=== PATIENT | female | born 1945 | race Caucasian/White ===

== ENCOUNTER 2016-09-13 20:35 | Inpatient (IN) ==
[2016-09-13] MEDS ORDERED: methylPREDNISolone SOD SUC 125 MG/2 ML VIAL IV STA (21:10)
[2016-09-13] MEDS ORDERED: SODIUM CHLORIDE 0.9% 1,000 ML IV STA (21:10)
[2016-09-13] MEDS ORDERED: ALBUTEROL/IPRATROPIUM 3 ML NEB RESP TX STA (21:10)
[2016-09-13] MEDS ORDERED: methylPREDNISolone SOD SUC 125 MG/2 ML VIAL ONE (21:39)
[2016-09-13 22:07] LABS: Basophils # 0.1 10*3/uL (0.0-0.2); Basophils % 0.5 % (0.0-0.8); Eosinophils # 1.6 10*3/uL (0.0-0.87); Eosinophils % 7.4 % (0.00-10.9); Hematocrit 39.4 VOL% (35.7-47.0); Immature Granulocytes % 0.6 %; Immature Granulocytes Absolute 0.13 #; Lymphocytes # 5.3 10*3/uL (1.4-4.0); Lymphocytes % 24.9 % (21.3-54.2); Mean Corpuscular HGB Conc 30.5 GM/DL (32-36); Mean Corpuscular Hemoglobin 26 PG (27-34); Mean Corpuscular Volume 85.3 FL (87-102); Mean Platelet Volume 9.2 FL (9.6-12.0); Monocytes # 1.8 10*3/uL (0.11-0.8); Monocytes % 8.3 % (1.7-12.7); Neutrophils # 12.3 10*3/uL (1.4-7.4); Neutrophils % 58.3 % (38.7-73.9); Platelet Count 472 T/CUMM (130-400); Red Blood Count 4.62 MC/CUMM (3.8-5.5); Red Cell Distribution Width 16.3 % (9.3-17.3); White Blood Count 21.1 T/CUMM (4-12)
[2016-09-13 22:30] LABS: Alanine Aminotransferase 18 U/L (13-56); Albumin 3.2 G/DL (3.4-5.0); Alkaline Phosphatase 77 U/L (45-117); Aspartate Amino Transferase 18 U/L (0-37); Bilirubin,Total < 0.39 MG/DL (0.2-1.0); Blood Urea Nitrogen 17 MG/DL (7-18); Calcium 8.8 MG/DL (8.5-10.1); Glucose 92 MG/DL (74-106); Osmolality,Calculated 280.4 MOS/KG (273-304); Potassium 4.3 MMOL/L (3.5-5.1); Sodium 140 MMOL/L (136-145); Total Protein 5.9 G/DL (6.4-8.3); Troponin I Only < 0.015 NG/ML (0.00-0.045)
[2016-09-13] MEDS ORDERED: ALBUTEROL 2.5 MG/3 ML NEB RESP TX SCH ×2 (22:30→23:45)
[2016-09-14 00:46] LABS: ABG Base Excess 3.4 MMOL/L (-2.5-2.5); ABG HCO3 27.4 MMOL/L (20-26); ABG Oxygen Saturation 95.5 % (95-100); ABG PH 7.266 (7.35-7.45); ABG TCO2 29.8 MMOL/L (23-27)
[2016-09-14] MEDS ORDERED: LEVOFLOXACIN INJ 750 MG in PREMIX 1 EACH IV STA (00:46)
[2016-09-14 00:51] LABS: ABG PCO2 72.4 MM HG (35-48)
[2016-09-14] MEDS ORDERED: LEVOFLOXACIN INJ 0 ML IV ONE (01:03)
[2016-09-14] MEDS ORDERED: ALBUTEROL 2.5 MG/3 ML NEB RESP TX PRN ×2 (01:22)
[2016-09-14] MEDS ORDERED: ONDANSETRON 4 MG/2 ML VIAL IV PRN (01:22)
[2016-09-14] MEDS ORDERED: ACETAMINOPHEN 325 MG TABLET PO PRN (01:22)
--- NOTE | 2016-09-14 01:35 | Emergency Department Note ---
I, Jenny Guerrero, am scribing for, and in the presence of, Mary Diaz MD 20:57. IJoe Leanne, MD, personally performed the services described in this documentation, ascribed by Jenny Guerrero in my presence, and it is both accurate and complete . Arrival - Arrival Chief Complaint: Shortness of Breath Stated Complaint: C/O SOB WITH ONSET AT [facility] 1945 TONIGHT Mode of Arrival: Stretcher Limitations: No Limitations Source: Patient - History of Present Illness HPI Narrative: Pt is a 71 y/o female that was brought to the ED via EMS with c/o SOB that came on suddenly around 5 tonight. Pt has associated sxs of LAZO but denies any other sxs. Pt has a PMHx of asthma and COPD and states "if I go outside for 10 minutes it does this." Pt reports that she is not from [place] and "my lungs don't like [place]." Pt denies being a current smoker or being around anyone who smokes. She states she does take breathing treatments at home daily for asthma and COPD. No other complaints/pain in ED. Onset (ago): hour(s) Consistency: constant Severity: moderate Severity scale (1-10): 4 Quality: other Allergies/Adverse Reactions: Allergies Allergy/AdvReac Type Severity Reaction Status Date / Time Latex, Natural Rubber Allergy Severe ANAPHYLAXIS Verified 08/16/16 08:57 Penicillins Allergy Severe ANAPHYLAXIS Verified 08/16/16 08:57 celecoxib [From Celebrex] Allergy Unknown ANAPHYLAXIS Verified 08/16/16 08:57 codeine Allergy Unknown ANAPHYLAXIS Verified 08/16/16 08:57 Shellfish Allergy Unknown ANAPHYLAXIS Verified 08/16/16 08:57 strawberry AdvReac Severe Vomiting Verified 08/16/16 08:57 lisinopril AdvReac ANAPHYLAXIS Verified 08/16/16 08:57 BABY POWDER Allergy RASH Uncoded 08/16/16 08:57 Home Medications: Home Medications Medication Instructions Recorded Confirmed Type dilTIAZem HCl [Taztia XT] 360 mg PO DAILY 01/06/16 08/16/16 History Albuterol/Ipratropium Neb [Duoneb] 3 ml RESP TX QID PRN 03/10/16 08/16/16 History Gabapentin 100 mg PO BID 03/10/16 08/16/16 History Sertraline [Zoloft] 25 mg PO BEDTIME 03/10/16 08/16/16 History Theophylline ER Tab (24 Hr) 400 mg PO DAILY 03/10/16 08/16/16 History dilTIAZem HCl [Cartia XT] 180 mg PO BID 03/10/16 08/16/16 History acetaZOLAMIDE TAB [Diamox Tab] 250 mg PO BID #60 tablet 03/13/16 08/16/16 Rx Diphenoxylate/Atrop 2.5-0.025 2.5 mg PO Q6H PRN 05/19/16 08/16/16 History [Lomotil Tab] ALPRAZolam [Xanax] 0.25 mg PO BID PRN #30 tablet 05/23/16 08/16/16 Rx Albuterol/Ipratropium Neb [Duoneb] 3 ml RESP TX RT Q6H PRN #0 05/23/16 08/16/16 Rx nebulization solution guaiFENesin/DM ER 600-30 [Mucinex 1 tablet PO BID PRN #30 tablet 05/23/16 Rx Dm 600-30 MG] Montelukast Tab [Singulair Tab] 10 mg PO DAILY 08/16/16 08/16/16 History Review of System - Review of System 12 point system: reviewed and no additional remarkable complaints except as stated - Review of System Constitutional: Absent: chills, fever Respiratory: Present: other (SOB). Absent: cough Cardiovascular: Absent: chest pain Gastrointestinal: Absent: abdominal pain, nausea, vomiting Musculoskeletal: Absent: arm pain, back pain, leg pain, neck pain Skin: Absent: rash Neurological: Present: headache Psychiatric: Absent: anxiety Medical,Surgical,& Family Hx - Medical History Cardio: History of: Cardiac Dysrhythmia (a-fib), CHF, Hypertension Psychological: History of: Anxiety Disorders, Bipolar Disorder, Depression, Psychiatric Problems (depressed mood aeb sadness, hopelessness, and inability to cope with daily) No history of: Behavior Problems, Previous Suicide Attempt, Psychiatric/ Substance Abuse Tx, Schizophrenia, Violent Behavior Neurology: History of: Dementia, Migraine No history of: Brain Aneurysm, Cerebral Hemorrhage, Cerebrovascular Accident , Cerebral Palsy, Seizures, TIA, Vertigo HEENT: History of: Dental Problems (MISSING TEETH) Endocrine: No history of: Diabetes Mellitus (IDDM), Diabetes Mellitus (NIDDM), Thyroid Disorder Respiratory: History of: Asthma, COPD, Pneumonia, Respiratory Problems (BORN PREMATURE;HAD LUNG PROBLEMS.) Renal: No history of: Dialysis, Renal Failure Genitourinary: History of: Bladder Problem (HX PROLAPSE BLADDER), Recurring Urinary Tract Infections, Problems (STRESS INCONTINENCE) No history of: Kidney Stones Gastrointestinal: History of: GERD, GI Problems Musculoskeletal: History of: Musculoskeletal Problems (MUSCLE WEAKNESS.) No history of: Amputation Hematology: History of: Anemia, Blood Transfusion Reaction (NOT SURE) Other: History of: Miscellaneous Medical Problems (DJD) - Surgical History Cardiac Surgeries: Patient Denies: Cardiac Catheterization Thoracic Surgeries: Patient denies;: Organ Transplant, Lobectomy Neurologic Surgeries: Patient denies: Brain Aneurysm, Cerebral Hemorrhage, Neurologic Surgery HEENT Surgeries: Patient denies: Eye Surgery, Thyroid Surgery, Tonsilectomy & Adenoidectomy Abdominal Surgeries: Surgical HX of: Abdominal Surgery, Cholecystectomy Reproductive Surgeries: Surgical HX of;: Gynecologic Surgery, Hysterectomy Patient denies;: Dilation and Curettage, Genitourinary Surgery - Family History Family History: Reports;: Family Diabetes (BROTHER), Family Hypertension ( BROTHER RECENT 1-2 MONTHS AGO.), Family Psychiatric Problems (BROTHER) Denies;: Family Anesthesia Reaction, Family Cancer, Family Heart Disease, Family Stroke - Social History Smoking Status: Former smoker Frequency of Alcohol Use: None Type of Drug Use: None Exam Vital Signs: Vital Signs Temperature 98.2 F 09/13/16 20:37 Pulse Rate 101 H 09/14/16 00:29 Respiratory Rate 32 H 09/14/16 00:29 Blood Pressure 153/77 09/13/16 20:37 O2 Sat by Pulse Oximetry 100 09/14/16 00:29 - General General appearance: alert, in no apparent distress - Head Head exam: Present: atraumatic, normocephalic - Eye Eye exam: Present: PERRL, EOMI - ENT ENT exam: Present: mucous membranes moist. Absent: mucous membranes dry - Neck Neck exam: Present: full ROM. Absent: tenderness - Chest Chest inspection: Present: symmetric chest wall rise. Absent: tenderness - Respiratory Respiratory exam: Present: wheezes (diffuse wheezing) - Cardiovascular Cardiovascular exam: Present: normal rhythm, tachycardia, normal heart sounds - Abdominal Exam Abdominal exam: Present: soft. Absent: tenderness - Extremities Exam Extremities exam: Present: full ROM. Absent: tenderness - Back Exam Back exam: Present: full ROM. Absent: tenderness - Neurological Exam Neurological exam: Present: alert, oriented X3, CN II-XII intact. Absent: motor sensory deficit - Psychiatric Psychiatric exam: Present: normal affect, normal mood - Skin Skin exam: Present: warm, dry Course Course Narrative: pt not improved after continuous nebs. placed on bipap. co2 high. ph 7.26. steriods and levaquin given. Admit to hospitalist. Results - Labs CBC & BMP: 09/13/16 21:50 09/13/16 21:50 Lab Results: I have reviewed the patients labs Labs: Laboratory Tests 09/13/16 21:50 WBC 21.1 H MCV 85.3 L MCH 26 L MCHC 30.5 L Plt Count 472 H MPV 9.2 L Neut # (Auto) 12.3 H Lymph # (Auto) 5.3 H Camas # (Auto) 1.8 H Eos # (Auto) 1.6 H Laboratory Tests 09/13/16 21:50 Carbon Dioxide 33 H Total Protein 5.9 L Albumin 3.2 L - EKG EKG results: interpreted by ANGE, sinus rhythm, normal ST/T - Diagnostic Findings Procedure: Chest x-ray: pending (no change from prior) Disposition Clinical Impression: Acute exacerbation of chronic obstructive airways disease, COPD (chronic obstructive pulmonary disease), Asthma Case discussed with: patient Condition: Guarded Additional Instructions: admit to hospitalist
--- NOTE | 2016-09-14 01:45 | Hospitalist History & Physical ---
Assessment and Plan (1) Acute and chronic respiratory failure ([id number]) Status: Acute Current Visit: No Qualifiers: Respiratory failure complication: hypercapnia Qualified Code(s): J96.22 - Acute and chronic respiratory failure with hypercapnia (2) COPD (chronic obstructive pulmonary disease) Status: Chronic Current Visit: No Qualifiers: COPD type: COPD with acute exacerbation Qualified Code(s): J44.1 - Chronic obstructive pulmonary disease with (acute) exacerbation (3) Essential hypertension Status: Chronic Current Visit: No (4) Leukocytosis Status: Acute Assessment and plan: We will admit patient our service. Will continue with the BiPAP. Patient will be transferred to ICU. Will repeat labs in the morning. Will consult pulmonary for assistance. Patient will continue with IV antibiotics and schedule breathing treatments and steroids. Once home meds are confirmed we will continue those as appropriate Current Visit: No History of Present Illness Chief complaint: Shortness of breath History of present illness: Ms. Lanza is a 71 year old female with past medical history of asthma and COPD comes in with shortness of breath that started around 8 PM tonight. Patient had frequent admissions to our hospital. She was last admitted in August. She says that she was getting short of breath. She denies any fever or productive cough. She is brought up to our hospital for further evaluation. Patient was found to have elevated PCO2 and was put on BiPAP. Patient is currently awake and alert and appropriate on BiPAP. Reports feeling better. I was consulted to admit her through the emergency room to intensive care. Home Medications Medication Instructions Recorded Confirmed Type dilTIAZem HCl [Taztia XT] 360 mg PO DAILY 01/06/16 08/16/16 History Albuterol/Ipratropium Neb [Duoneb] 3 ml RESP TX QID PRN 03/10/16 08/16/16 History Gabapentin 100 mg PO BID 03/10/16 08/16/16 History Sertraline [Zoloft] 25 mg PO BEDTIME 03/10/16 08/16/16 History Theophylline ER Tab (24 Hr) 400 mg PO DAILY 03/10/16 08/16/16 History dilTIAZem HCl [Cartia XT] 180 mg PO BID 03/10/16 08/16/16 History acetaZOLAMIDE TAB [Diamox Tab] 250 mg PO BID #60 tablet 03/13/16 08/16/16 Rx Diphenoxylate/Atrop 2.5-0.025 2.5 mg PO Q6H PRN 05/19/16 08/16/16 History [Lomotil Tab] ALPRAZolam [Xanax] 0.25 mg PO BID PRN #30 tablet 05/23/16 08/16/16 Rx Albuterol/Ipratropium Neb [Duoneb] 3 ml RESP TX RT Q6H PRN #0 05/23/16 08/16/16 Rx nebulization solution guaiFENesin/DM ER 600-30 [Mucinex 1 tablet PO BID PRN #30 tablet 05/23/16 Rx Dm 600-30 MG] Montelukast Tab [Singulair Tab] 10 mg PO DAILY 08/16/16 08/16/16 History Allergies Allergy/AdvReac Type Severity Reaction Status Date / Time Latex, Natural Rubber Allergy Severe ANAPHYLAXIS Verified 08/16/16 08:57 Penicillins Allergy Severe ANAPHYLAXIS Verified 08/16/16 08:57 celecoxib [From Celebrex] Allergy Unknown ANAPHYLAXIS Verified 08/16/16 08:57 codeine Allergy Unknown ANAPHYLAXIS Verified 08/16/16 08:57 Shellfish Allergy Unknown ANAPHYLAXIS Verified 08/16/16 08:57 strawberry AdvReac Severe Vomiting Verified 08/16/16 08:57 lisinopril AdvReac ANAPHYLAXIS Verified 08/16/16 08:57 BABY POWDER Allergy RASH Uncoded 08/16/16 08:57 Medical,Surgical,& Family Hx - Medical History Cardio: History of: Cardiac Dysrhythmia (a-fib), CHF, Hypertension Psychological: History of: Anxiety Disorders, Bipolar Disorder, Depression, Psychiatric Problems (depressed mood aeb sadness, hopelessness, and inability to cope with daily) No history of: Behavior Problems, Previous Suicide Attempt, Psychiatric/ Substance Abuse Tx, Schizophrenia, Violent Behavior Neurology: History of: Dementia, Migraine No history of: Brain Aneurysm, Cerebral Hemorrhage, Cerebrovascular Accident , Cerebral Palsy, Seizures, TIA, Vertigo HEENT: History of: Dental Problems (MISSING TEETH) Endocrine: No history of: Diabetes Mellitus (IDDM), Diabetes Mellitus (NIDDM), Thyroid Disorder Respiratory: History of: Asthma, COPD, Pneumonia, Respiratory Problems (BORN PREMATURE;HAD LUNG PROBLEMS.) Renal: No history of: Dialysis, Renal Failure Genitourinary: History of: Bladder Problem (HX PROLAPSE BLADDER), Recurring Urinary Tract Infections, Problems (STRESS INCONTINENCE) No history of: Kidney Stones Gastrointestinal: History of: GERD, GI Problems Musculoskeletal: History of: Musculoskeletal Problems (MUSCLE WEAKNESS.) No history of: Amputation Hematology: History of: Anemia, Blood Transfusion Reaction (NOT SURE) Other: History of: Miscellaneous Medical Problems (DJD) - Surgical History Cardiac Surgeries: Patient Denies: Cardiac Catheterization Thoracic Surgeries: Patient denies;: Organ Transplant, Lobectomy Neurologic Surgeries: Patient denies: Brain Aneurysm, Cerebral Hemorrhage, Neurologic Surgery HEENT Surgeries: Patient denies: Eye Surgery, Thyroid Surgery, Tonsilectomy & Adenoidectomy Abdominal Surgeries: Surgical HX of: Abdominal Surgery, Cholecystectomy Reproductive Surgeries: Surgical HX of;: Gynecologic Surgery, Hysterectomy Patient denies;: Dilation and Curettage, Genitourinary Surgery - Family History Family History: Reports;: Family Diabetes (BROTHER), Family Hypertension ( BROTHER RECENT 1-2 MONTHS AGO.), Family Psychiatric Problems (BROTHER) Denies;: Family Anesthesia Reaction, Family Cancer, Family Heart Disease, Family Stroke - Social History Smoking Status: Former smoker Frequency of Alcohol Use: None Type of Drug Use: None 12 point system: reviewed and no additional remarkable complaints except as stated Exam - Constitutional Vitals: Period Temp Pulse Resp BP Sys/Montes Pulse Ox Last 24 Hr 98.1 F-98.2 F 98-108 24-32 153-153/77-77 94-100 - General General appearance: alert, in no apparent distress - Head Head exam: Present: atraumatic, normocephalic - Eye Eye exam: Present: PERRL, EOMI - ENT ENT exam: Present: mucous membranes moist. Absent: mucous membranes dry - Neck Neck exam: Present: full ROM. Absent: tenderness - Chest Chest inspection: Present: symmetric chest wall rise. Absent: tenderness - Respiratory Respiratory exam: Present: wheezes (diffuse wheezing) - Cardiovascular Cardiovascular exam: Present: normal rhythm, tachycardia, normal heart sounds - Abdominal Exam Abdominal exam: Present: soft. Absent: tenderness - Extremities Exam Extremities exam: Present: full ROM. Absent: tenderness - Back Exam Back exam: Present: full ROM. Absent: tenderness - Neurological Exam Neurological exam: Present: alert, oriented X3, CN II-XII intact. Absent: motor sensory deficit - Psychiatric Psychiatric exam: Present: normal affect, normal mood - Skin Skin exam: Present: warm, dry Results - Labs CBC & BMP: 09/13/16 21:50 09/13/16 21:50
[2016-09-14] MEDS: ENOXAPARIN 40 MG/0.4 ML SYRINGE SUBCUT SCH (02:35)
[2016-09-14] MEDS: PANTOPRAZOLE 40 MG VIAL IV SCH (02:36)
[2016-09-14] MEDS: methylPREDNISolone SOD SUC 40 MG/1 ML VIAL IV SCH ×4 (02:36→21:45)
[2016-09-14 03:50] LABS: ABG Base Excess 2.7 MMOL/L (-2.5-2.5); ABG HCO3 26.7 MMOL/L (20-26); ABG PH 7.262 (7.35-7.45); ABG PO2 84.3 MM HG (80-95); ABG TCO2 29.1 MMOL/L (23-27); Allen Test Positive; Pt O2 Delivery Device BIPAP
[2016-09-14] MEDS: ALBUTEROL/IPRATROPIUM 3 ML NEB RESP TX SCH ×3 (07:17→19:22)
--- NOTE | 2016-09-14 07:23 | XRay Report ---
XR chest 1V portable Indication: SOB Comparison: Chest x-ray dated July 17, 2016 Technique: Single frontal view of the chest Findings: Cardiomediastinal silhouette is stable in configuration. Heart appears borderline prominent. Interval increased prominence of interstitial lung markings of the bilateral lower lungs suspicious for interstitial pulmonary edema or interstitial pneumonia. Osseous and surrounding soft tissue structures appear grossly unchanged. IMPRESSION: As above. PROCEDURE INTERPRETED AT [facility] DEPARTMENT OF RADIOLOGY Final Report Signed by: Dr Roberto Suarez
[2016-09-14 08:11] LABS: Allen Test Positive
[2016-09-14 08:12] LABS: ABG HCO3 30.4 MMOL/L (20-26); ABG Oxygen Saturation 91.2 % (95-100); ABG PCO2 53.9 MM HG (35-48); ABG PH 7.369 (7.35-7.45); ABG PO2 57.4 MM HG (80-95)
[2016-09-14 08:22] LABS: Basophils % 0.1 % (0.0-0.8); Hemoglobin 11.8 GM/DL (12.0-16.0); Immature Granulocytes % 0.9 %; Immature Granulocytes Absolute 0.14 #; Lymphocytes # 0.9 10*3/uL (1.4-4.0); Lymphocytes % 5.6 % (21.3-54.2); Mean Corpuscular HGB Conc 29.2 GM/DL (32-36); Mean Corpuscular Hemoglobin 26 PG (27-34); Mean Platelet Volume 10.2 FL (9.6-12.0); Monocytes # 0.1 10*3/uL (0.11-0.8); Monocytes % 0.4 % (1.7-12.7); Neutrophils # 15.3 10*3/uL (1.4-7.4); Platelet Count 450 T/CUMM (130-400); Red Blood Count 4.54 MC/CUMM (3.8-5.5); Red Cell Distribution Width 16.2 % (9.3-17.3); White Blood Count 16.5 T/CUMM (4-12)
[2016-09-14 08:23] LABS: Hematocrit 40.4 VOL% (35.7-47.0)
--- NOTE | 2016-09-14 08:25 | Hospitalist Progress Note ---
Assessment and Plan (1) Acute and chronic respiratory failure ([id number]) Status: Acute Current Visit: No Qualifiers: Respiratory failure complication: hypercapnia Qualified Code(s): J96.22 - Acute and chronic respiratory failure with hypercapnia (2) COPD (chronic obstructive pulmonary disease) Status: Chronic Assessment and plan: cont duonebs, steroids and levaquin Current Visit: No Qualifiers: COPD type: COPD with acute exacerbation Qualified Code(s): J44.1 - Chronic obstructive pulmonary disease with (acute) exacerbation (3) Bipolar 1 disorder, manic, mild Status: Chronic Assessment and plan: need to verify home meds Current Visit: No (4) Essential hypertension Status: Chronic Assessment and plan: controlled Current Visit: No Hospitalist: Subjective Interval history: Patient is refusing to wear BiPAP. Told nursing to keep her oxygen level between 85 and 88%. Her CO2 will come down if you keep her oxygen low. Dr. Baxter consulted. Exam - Constitutional Vitals: Period Temp Pulse Resp BP Sys/Montes Pulse Ox Last 24 Hr 97.2 F-98.1 F 87-106 17-27 107-134/48-75 94-98 Exam: Heart Rate-[RRR] Lungs-[rhonchi, wheezing] GI-[+bs soft, NT] Ext-[no edema] Neuro [Motor 5/5], [alert and oriented times 2] psych [normal mood and affect] General [no acute distress] Results - Labs CBC & BMP: 09/13/16 21:50 09/13/16 21:50 Lab Results: I have reviewed the past 24 hour labs - Diagnostic Findings Procedure: Chest x-ray: image reviewed by me (copd, ?interstitial edema/ infiltrate on left )
[2016-09-14 08:27] LABS: Albumin 3.1 G/DL (3.4-5.0); Bilirubin,Total 0.5 MG/DL (0.2-1.0); Calcium 8.7 MG/DL (8.5-10.1); Potassium 5.4 MMOL/L (3.5-5.1); Total Protein 6.1 G/DL (6.4-8.3)
--- NOTE | 2016-09-14 08:41 | XRay Report ---
XR chest 1V portable Indication: SOB Comparison: Chest x-ray dated September 13, 2016 Technique: Single frontal view of the chest Findings: Cardiac mediastinal silhouette is stable in configuration. Chronic change of the lungs present. There remains interstitial prominence within the bilateral lower lungs. No new focal consolidation, pleural effusion, or pneumothorax. Osseous and surrounding soft tissue structures appear grossly unchanged. IMPRESSION: No significant interval change. PROCEDURE INTERPRETED AT [facility] DEPARTMENT OF RADIOLOGY Final Report Signed by: Dr Roberto Suarez
[2016-09-14 08:48] LABS: Band Neutrophils 2 % (0-10); Lymphocytes 8 % (20-55); Segmented Neutrophils 89 % (50-85); Total Cells Counted 100
[2016-09-14 08:49] LABS: Hypochromasia 1+; Microcytosis 1+
--- NOTE | 2016-09-14 08:51 | EKG Report ---
Stationary ECG Study [facility] Test Date: 09/13/2016 10:17:50 PM Pat Name: ANAND HERNANDEZ Department: Room: 121 Gender: F [employer] Guide [employer]er: : 1945 Requested by: Mary Diaz Order Number: [id number] Reading MD: GRECIA MOBLEY Intervals [place] Rate: 98 P: 74 IA: 201 QRS: 87 QRSD: 86 T: 47 QT: 331 QTc: 386 Interpretive Statements SINUS RHYTHM WITH OCCASIONAL SUPRAVENTRICULAR PREMATURE COMPLEXES BASELINE ARTIFACT Electronically Signed On 09-15-16 21:50:04 CDT by GRECIA MOBLEY [email or web address]
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
[2016-09-14] MEDS: DESITIN 4OZ/NYSTATIN 15 GRAM MIXTURE PASTE TOP SCH (21:49)
[2016-09-15] MEDS: ALBUTEROL/IPRATROPIUM 3 ML NEB RESP TX SCH ×4 (01:08→20:20)
[2016-09-15] MEDS ORDERED: LEVOFLOXACIN INJ 750 MG in PREMIX 1 EACH IV SCH (01:30)
[2016-09-15] MEDS: ENOXAPARIN 40 MG/0.4 ML SYRINGE SUBCUT SCH (01:44)
[2016-09-15] MEDS: PANTOPRAZOLE 40 MG VIAL IV SCH (02:03)
[2016-09-15] MEDS: methylPREDNISolone SOD SUC 40 MG/1 ML VIAL IV SCH ×2 (02:45→09:46)
--- NOTE | 2016-09-15 07:45 | XRay Report ---
XR chest 1V portable Indication: COPD, SOB Comparison: Chest x-ray dated September 14, 2016 Technique: Single frontal view of the chest Findings: Cardiomediastinal silhouette is stable in configuration. Chronic change of the lungs present with nonspecific mild interstitial prominence. No new focal consolidation, pleural effusion, or pneumothorax. Osseous and surrounding soft tissue structures appear grossly unchanged. IMPRESSION: No adverse interval change. PROCEDURE INTERPRETED AT [facility] DEPARTMENT OF RADIOLOGY Final Report Signed by: Dr Roberto Suarez
[2016-09-15] MEDS: DESITIN 4OZ/NYSTATIN 15 GRAM MIXTURE PASTE TOP SCH ×2 (09:46→21:46)
--- NOTE | 2016-09-15 10:55 | Pulmonology Progress Note ---
Pulmonary - PN: Subj Interval history: Adrian Mcgovern, ANP-BC, GNP-BC, acting as scribe for Dr. Arturo Baxter Ms. Lanza is a 71-year-old white female who we saw in initial pulmonary consultation on 09/14/2016. At that time, our impressions were: #1: Acute exacerbation of COPD/asthma #2: CO2 retention #3: Bipolar disorder #4: Anxiety and depression #5: Hypertension #6: History of atrial fibrillation #7: Gastroesophageal reflux disease #8: History of anemia #9: Prolapsed bladder #10: History of recurrent UTIs #11: Stress incontinence #12: See past history 09/15/2016. The patient has been moved out of cardiac care and up to telemetry. She was seen sitting up on the side of the bed. Her breathing is stable. She feels she is back to her baseline. Again, she relates her acute exacerbation to going outside and feeding a stray cat. She states "I'm going to have to stop doing that". On chest exam, there is slight generalized high-pitched end expiratory wheeze. We restarted the patient's home dose of theophylline. Medications have been reviewed. Theophylline 400 mg daily has been restarted. Labs have been reviewed. No new labs were drawn today. Exam (Progress Note) - Constitutional Vitals: Period Temp Pulse Resp BP Sys/Montes Pulse Ox Last 24 Hr 97.1 F-99.3 F 85-123 16-20 115-149/66-79 90-100 Exam: Chest... See above Heart no gallop Abdomen is nontender and nondistended; bowel sounds are positive 4 Extremities with nothing to suggest acute deep venous thrombophlebitis Psychiatric presently oriented 3 Neurologic long tract motor function is intact Plan: The patient is to continue her theophylline and DuoNeb at discharge. Also at discharge, we would suggest a short course of oral antibiotics such as Levaquin. She will need prednisone 40 mg daily for 3 days then 20 mg daily for 7 days then 10 mg daily for 7 days then 10 mg every other day for 7 days. She can follow-up with her primary care physician. She is stable from a pulmonary standpoint. We will sign off. Please reconsult as needed. Results - Labs CBC & BMP: 09/14/16 07:31 09/14/16 07:31
[2016-09-15] MEDS: THEOPHYLLINE ER (24 HR) 400 MG TABLET PO SCH (11:05)
[2016-09-15] MEDS: predniSONE 20 MG TABLET PO SCH (11:51)
[2016-09-15] MEDS: LEVOFLOXACIN 750 MG TABLET PO SCH (11:51)
--- NOTE | 2016-09-15 15:08 | Hospitalist Progress Note ---
Assessment and Plan (1) Acute and chronic respiratory failure ([id number]) Status: Acute Assessment and plan: change to po levaquin and steroids, cont breathing treatments. Current Visit: No Qualifiers: Respiratory failure complication: hypercapnia Qualified Code(s): J96.22 - Acute and chronic respiratory failure with hypercapnia (2) COPD (chronic obstructive pulmonary disease) Status: Chronic Assessment and plan: cont duonebs, steroids and levaquin Current Visit: No Qualifiers: COPD type: COPD with acute exacerbation Qualified Code(s): J44.1 - Chronic obstructive pulmonary disease with (acute) exacerbation (3) Bipolar 1 disorder, manic, mild Status: Chronic Assessment and plan: need to verify home meds Current Visit: No (4) Essential hypertension Status: Chronic Assessment and plan: restart diltiazem Current Visit: No Hospitalist: Subjective Interval history: Patient is doing well today. She lost IV access and does not want to be restock. I do not see this is a problem. She is not quite ready to go today but she is doing much better. She is off oxygen we need to keep her sats extremely low and she functions better. She refuses to wear BiPAP at night Exam - Constitutional Vitals: Period Temp Pulse Resp BP Sys/Montes Pulse Ox Last 24 Hr 97.1 F-98.9 F 83-123 16-20 117-149/67-79 90-100 Exam: Heart Rate-[RRR] Lungs-[decreased ] GI-[+bs soft, NT] Ext-[no edema] Neuro [Motor 5/5], [alert and oriented times 2] psych [agitated mood and affect] General [no acute distress] Results - Labs CBC & BMP: 09/14/16 07:31 09/14/16 07:31 Lab Results: I have reviewed the past 24 hour labs - Diagnostic Findings Procedure: Chest x-ray: report reviewed by me (chronic copd )
[2016-09-15] MEDS: SODIUM POLYSTYRENE SULFATE 15 GM/60 ML BOTTLE PO ONE ×2 (15:40→15:46)
[2016-09-15] MEDS ORDERED: SERTRALINE 25 MG TABLET PO SCH (21:00)
[2016-09-15] MEDS: GABAPENTIN 100 MG CAPSULE PO SCH (21:45)
[2016-09-15] MEDS: DILTIAZEM CD 180 MG CAPSULE PO SCH (21:45)
[2016-09-16] MEDS: ENOXAPARIN 40 MG/0.4 ML SYRINGE SUBCUT SCH (01:25)
[2016-09-16] MEDS: ALBUTEROL/IPRATROPIUM 3 ML NEB RESP TX SCH ×2 (01:26→07:46)
[2016-09-16] MEDS: GABAPENTIN 100 MG CAPSULE PO SCH (09:04)
[2016-09-16] MEDS: LEVOFLOXACIN 750 MG TABLET PO SCH (09:04)
[2016-09-16] MEDS: THEOPHYLLINE ER (24 HR) 400 MG TABLET PO SCH (09:04)
[2016-09-16] MEDS: DESITIN 4OZ/NYSTATIN 15 GRAM MIXTURE PASTE TOP SCH (09:04)
[2016-09-16] MEDS: DILTIAZEM CD 180 MG CAPSULE PO SCH (09:04)
[2016-09-16] MEDS: predniSONE 20 MG TABLET PO SCH (09:04)
--- NOTE | 2016-09-16 10:19 | Discharge Summary ---
Hospital Course - Hospital Course Hospital Course: 71 year old female with past medical history of asthma and COPD comes in with shortness of breath that started around 8 PM tonight. Patient has reoccurring admissions for COPD exacerbation. She is well-known to my service. She is doing much better today. Chest x-ray showed no evidence of pneumonia. Dr. Baxter has been following along. Patient has returned to her baseline and will be discharged home. She has chronically elevated CO2 but refuses to wear BiPAP. Her sats need to run low between 85 and 88. This will keep her from retaining her CO2. Dr. Baxter does not want her on more than half a liter every day. Discharged home. - Time spent with patient Time with patient DS: Less than 30 minutes (25 min) Diagnosis - Discharge Diagnosis (1) Acute and chronic respiratory failure ([id number]) Status: Acute (2) COPD (chronic obstructive pulmonary disease) Status: Chronic (3) Bipolar 1 disorder, manic, mild Status: Chronic (4) Essential hypertension Status: Chronic Discharge Plan - Discharge Data Disposition: Home Health Service Condition at Discharge: Stable Discharge Diet: heart healthy Activity: resume usual activities as tolerated, wear oxygen at all times (only 0.5 liter ) Hygiene: no restrictions Weight Bearing at Discharge: full weight bearing Contact your physician if you experience:: fever over 101 - Discharge Medications New Levofloxacin Tab [Levaquin Tab] 750 mg PO DAILY #2 tablet predniSONE TAB [PredniSONE] 20 mg PO DAILY #30 tablet Albuterol/Ipratropium Neb [Duoneb] 3 ml RESP TX RT Q6H Continue Sertraline [Zoloft] 25 mg PO BEDTIME Theophylline ER Tab (24 Hr) 400 mg PO DAILY Gabapentin 100 mg PO BID dilTIAZem HCl [Cartia XT] 180 mg PO BID #60 Albuterol/Ipratropium Neb [Duoneb] 3 ml RESP TX RT Q6H PRN #0 nebulization solution PRN Reason: Shortness Of Breath/Wheezing Discontinued dilTIAZem HCl [Taztia XT] 360 mg PO DAILY Diphenoxylate/Atrop 2.5-0.025 [Lomotil Tab] 2.5 mg PO Q6H PRN PRN Reason: Diarrhea - Follow Up or Referral Follow Up: Arturo Baxter MD [Physician] - 2 Weeks - Forms/Instructions Additional Discharge Instructions: oxygen to keep sat 85 to 88%, not to exceed one half liter Exam - Constitutional Vitals: Period Temp Pulse Resp BP Sys/Montes Pulse Ox Last 24 Hr 97.6 F-99.3 F 83-126 16-20 122-154/67-98 90-99 General appearance: normal weight, no acute distress - Respiratory Respiratory exam: Present: clear to auscultation bilaterally, decreased breath sounds. Absent: wheezes - Cardiovascular Cardiovascular exam: Present: tachycardia. Absent: systolic murmur - GI/Abdominal GI/Abdominal exam: Present: normal bowel sounds, soft. Absent: tenderness - Extremities Exam Extremities exam: Present: normal inspection, normal capillary refill - Neurological Exam Neurological exam: Present: alert, oriented X3 - Psychiatric Psychiatric exam: Present: anxious Discharge Results Procedures and tests throughout hospitalization: Pending Orders 09/14/16 09:48 Sputum Culture and Gram Stain Routine DS: Provider Date of admission: 09/14/16 01:22 Primary care physician: . No PCP Attending physician on admission: Alexander Landry MD Discharging clinician: Jamilah Tam MD
[2016-09-16 12:03] VITALS: BP 163/93
== END 2016-09-16 13:45 | disposition home health service (06) | DRG 190 ==
LOC: EDBD → EDUNIT# → N.ED 20:35 → SUATTDRO 09-14 01:22 → N.EDINP 09-14 01:22 → N.CC 09-14 01:45 → N.TELEN 09-14 10:26
PROVIDERS: ADMIT Internal Medicine; ATTEND Internal Medicine

== ENCOUNTER 2016-10-12 12:13 | Inpatient (IN) ==
[2016-10-12] MEDS ORDERED: methylPREDNISolone SOD SUC 125 MG/2 ML VIAL IV STA (12:59)
[2016-10-12] MEDS ORDERED: AZITHROMYCIN INJ 500 MG in SODIUM CHLORIDE 0.9% 250 ML IV STA (12:59)
--- NOTE | 2016-10-12 12:59 | EKG Report ---
Stationary ECG Study [facility] ER Test Date: 10/12/2016 12:47:21 PM Pat Name: ANAND HERNANDEZ Department: Room: Gender: F Trading Analyst: : 1945 Requested by: Azeem Stratton Order Number: [id number] Reading MD: JENNIFER NARVAEZ Intervals [place] Rate: 101 P: 85 TX: 178 QRS: 123 QRSD: 87 T: 5 QT: 342 QTc: 400 Interpretive Statements SINUS TACHYCARDIA WITH OCCASIONAL SUPRAVENTRICULAR PREMATURE COMPLEXES At 101 bpm TX WP POSSIBLE RIGHT VENTRICULAR HYPERTROPHY NONSPECIFIC T-WAVE ABNORMALITY Electronically Signed On 10-13-16 13:06:02 CDT by JENNIFER NARVAEZ [email or web address]
[2016-10-12] MEDS ORDERED: ALBUTEROL 2.5 MG/3 ML NEB RESP TX SCH (13:00)
[2016-10-12 13:38] LABS: ABG Base Excess 4.1 MMOL/L (-2.5-2.5); ABG HCO3 28.1 MMOL/L (20-26); ABG Oxygen Saturation 99.3 % (95-100); ABG PH 7.263 (7.35-7.45); ABG TCO2 30.6 MMOL/L (23-27)
[2016-10-12 13:44] LABS: Apearance,Urine CLEAR (Clear); Bilirubin,Urine Negative (Negative); Blood, Urine Negative (Negative); Glucose,Urine (UA) Negative (Negative); Ketones,Urine Negative (Negative); Nitrite,Urine Negative (Negative); Protein,Urine Negative; RBC,Urine <1 /HPF (0-4); Squamous Epithelial Cell,Urine Occasional /HPF (0-10); Urine Color Colorless (Yellow); Urine Specific Gravity 1.004 (1.001-1.035); Urine Urobilinogen < 2.0 EU/DL (0.2-1.0); WBC,Urine 13 /HPF (0-6)
[2016-10-12 13:45] LABS: ABG PCO2 75.9 MM HG (35-48)
--- NOTE | 2016-10-12 13:45 | XRay Report ---
XR chest 1V portable Indication: SOB Comparison: Chest x-ray dated September 15, 2016 Technique: Single frontal view of the chest. Findings: The cardiomediastinal silhouette is stable in configuration. Chronic change of the lungs without focal consolidation, pleural effusion, or pneumothorax. Visualized osseous and surrounding soft tissue structures appear grossly unchanged. IMPRESSION: Stable chest x-ray without acute cardiopulmonary process demonstrated. PROCEDURE INTERPRETED AT [facility] DEPARTMENT OF RADIOLOGY Final Report Signed by: Dr Roberto Suarez
[2016-10-12 13:46] LABS: Basophils # 0.1 10*3/uL (0.0-0.2); Basophils % 0.6 % (0.0-0.8); Eosinophils # 1.1 10*3/uL (0.0-0.87); Eosinophils % 6.6 % (0.00-10.9); Hematocrit 42.3 VOL% (35.7-47.0); Hemoglobin 13.1 GM/DL (12.0-16.0); Immature Granulocytes % 0.7 %; Immature Granulocytes Absolute 0.12 #; Lymphocytes # 5.4 10*3/uL (1.4-4.0); Lymphocytes % 31.4 % (21.3-54.2); Mean Corpuscular Hemoglobin 26 PG (27-34); Mean Corpuscular Volume 83.9 FL (87-102); Mean Platelet Volume 9.6 FL (9.6-12.0); Monocytes # 1.4 10*3/uL (0.11-0.8); Neutrophils % 52.7 % (38.7-73.9); Platelet Count 424 T/CUMM (130-400); Red Blood Count 5.04 MC/CUMM (3.8-5.5); Red Cell Distribution Width 16.9 % (9.3-17.3); White Blood Count 17.2 T/CUMM (4-12)
[2016-10-12] MEDS ORDERED: AZITHROMYCIN 500 MG VIAL IV ONE (13:47)
[2016-10-12] MEDS ORDERED: methylPREDNISolone SOD SUC 125 MG/2 ML VIAL ONE (13:47)
--- NOTE | 2016-10-12 13:47 | Emergency Department Note ---
Tigist Anglin Gwan, am scribing for, and in the presence of, Azeem Rubio MD 13 :07. Joanne Anglin Charles R, MD, personally performed the services described in this documentation, ascribed by Kiersten Escoto in my presence, and it is both accurate and complete 347 . Arrival - Arrival Chief Complaint: Shortness of Breath Stated Complaint: shortness of breath ED Nursing Triage Note: Patient complains of shortness of breat since last PM. No history of CHF. Patient states that she has COPD. Mode of Arrival: Stretcher Limitations: No Limitations Source: Patient, Old Records Reviewed, RN Notes Reviewed Time Seen by Provider: 10/12/16 12:35 - History of Present Illness HPI Narrative: Patient is a 71 y/o white female, with a hx of asthma and COPD, who presents to the ED with a c/o SOB and wheezing with an onset yesterday evening. Patient confirmed that she is being followed by Dr. Carrillo but denies f/u with [employer], smoking cigarettes, any ETOH use or being on any blood thinners. No other problems/complaints reported in ED. During exam, it was noted that pt has to sit up to move air and intermittently takes pursed breathes. Onset (ago): day(s) Consistency: constant Severity: moderate Allergies/Adverse Reactions: Allergies Allergy/AdvReac Type Severity Reaction Status Date / Time Latex, Natural Rubber Allergy Severe ANAPHYLAXIS Verified 08/16/16 08:57 Penicillins Allergy Severe ANAPHYLAXIS Verified 08/16/16 08:57 celecoxib [From Celebrex] Allergy Unknown ANAPHYLAXIS Verified 08/16/16 08:57 codeine Allergy Unknown ANAPHYLAXIS Verified 08/16/16 08:57 Shellfish Allergy Unknown ANAPHYLAXIS Verified 08/16/16 08:57 strawberry AdvReac Severe Vomiting Verified 08/16/16 08:57 lisinopril AdvReac ANAPHYLAXIS Verified 08/16/16 08:57 BABY POWDER Allergy RASH Uncoded 08/16/16 08:57 Home Medications: Home Medications Medication Instructions Recorded Confirmed Type Gabapentin 100 mg PO BID 03/10/16 09/14/16 History Sertraline [Zoloft] 25 mg PO BEDTIME 03/10/16 09/14/16 History Theophylline ER Tab (24 Hr) 400 mg PO DAILY 03/10/16 09/14/16 History Albuterol/Ipratropium Neb [Duoneb] 3 ml RESP TX RT Q6H PRN #0 05/23/16 09/14/16 Rx nebulization solution Albuterol/Ipratropium Neb [Duoneb] 3 ml RESP TX RT Q6H 09/16/16 Rx Levofloxacin Tab [Levaquin Tab] 750 mg PO DAILY #2 tablet 09/16/16 Rx dilTIAZem HCl [Cartia XT] 180 mg PO BID #60 09/16/16 Rx predniSONE TAB [PredniSONE] 20 mg PO DAILY #30 tablet 09/16/16 Rx Review of System - Review of System 12 point system: reviewed and no additional remarkable complaints except as stated - Review of System Constitutional: Absent: chills, fever Eyes: Absent: discharge Head/Ears/Nose/Throat: Absent: earache Respiratory: Present: as per HPI, wheezing, other (shortness of breathe ). Absent: cough Cardiovascular: Absent: chest pain Gastrointestinal: Absent: abdominal pain, nausea, vomiting, diarrhea Genitourinary female: Absent: dysuria Musculoskeletal: Absent: arm pain, back pain, leg pain, neck pain Skin: Absent: rash Neurological: Absent: headache Medical,Surgical,& Family Hx - Medical History Cardio: History of: Cardiac Dysrhythmia (a-fib), CHF, Hypertension Psychological: History of: Anxiety Disorders, Bipolar Disorder, Depression, Psychiatric Problems (depressed mood aeb sadness, hopelessness, and inability to cope with daily) No history of: Behavior Problems, Previous Suicide Attempt, Psychiatric/ Substance Abuse Tx, Schizophrenia, Violent Behavior Neurology: History of: Dementia, Migraine No history of: Brain Aneurysm, Cerebral Hemorrhage, Cerebrovascular Accident , Cerebral Palsy, Seizures, TIA, Vertigo HEENT: History of: Dental Problems (MISSING TEETH) Endocrine: No history of: Diabetes Mellitus (IDDM), Diabetes Mellitus (NIDDM), Thyroid Disorder Respiratory: History of: Asthma, COPD, Pneumonia, Respiratory Problems (BORN PREMATURE;HAD LUNG PROBLEMS.) Renal: No history of: Dialysis, Renal Failure Genitourinary: History of: Bladder Problem (HX PROLAPSE BLADDER), Recurring Urinary Tract Infections, Problems (STRESS INCONTINENCE) No history of: Kidney Stones Gastrointestinal: History of: GERD, GI Problems Musculoskeletal: History of: Musculoskeletal Problems (MUSCLE WEAKNESS.) No history of: Amputation Hematology: History of: Anemia, Blood Transfusion Reaction (NOT SURE) Other: History of: Miscellaneous Medical Problems (DJD) - Surgical History Cardiac Surgeries: Patient Denies: Cardiac Catheterization Thoracic Surgeries: Patient denies;: Organ Transplant, Lobectomy Neurologic Surgeries: Patient denies: Brain Aneurysm, Cerebral Hemorrhage, Neurologic Surgery HEENT Surgeries: Patient denies: Eye Surgery, Thyroid Surgery, Tonsilectomy & Adenoidectomy Abdominal Surgeries: Surgical HX of: Abdominal Surgery, Cholecystectomy Reproductive Surgeries: Surgical HX of;: Gynecologic Surgery, Hysterectomy Patient denies;: Dilation and Curettage, Genitourinary Surgery - Family History Family History: Reports;: Family Diabetes (BROTHER), Family Hypertension ( BROTHER RECENT 1-2 MONTHS AGO.), Family Psychiatric Problems (BROTHER) Denies;: Family Anesthesia Reaction, Family Cancer, Family Heart Disease, Family Stroke - Social History Smoking Status: Former smoker Frequency of Alcohol Use: Unknown Type of Drug Use: None Exam Vital Signs: Vital Signs Temperature 98.2 F 10/12/16 12:22 Pulse Rate 113 H 10/12/16 14:11 Respiratory Rate 26 H 10/12/16 14:11 Blood Pressure 147/81 10/12/16 12:22 O2 Sat by Pulse Oximetry 91 L 10/12/16 14:11 - General General appearance: alert, other (Fraile; barrell chested) - Head Head exam: Present: atraumatic, normocephalic - Eye Eye exam: Present: normal appearance, PERRL, EOMI - ENT ENT exam: Present: normal oropharynx, mucous membranes moist, TM's normal bilaterally, normal external ear exam - Neck Neck exam: Present: full ROM. Absent: trachea midline - Chest Chest inspection: Present: symmetric chest wall rise. Absent: tenderness - Respiratory Respiratory exam: Present: wheezes, other (no breathe sounds ) - Cardiovascular Cardiovascular exam: Present: tachycardia - Abdominal Exam Abdominal exam: Present: soft, normal bowel sounds. Absent: distention - Extremities Exam Extremities exam: Present: full ROM. Absent: tenderness - Back Exam Back exam: Present: full ROM. Absent: tenderness - Neurological Exam Neurological exam: Present: alert, oriented X3, CN II-XII intact. Absent: motor sensory deficit - Psychiatric Psychiatric exam: Present: normal affect, normal mood - Skin Skin exam: Present: warm, dry, intact, normal color Course - Reevaluation(s) Reevaluation #1: Patient has marked improvement. Patient's PH is gone from 7.27.3. Patient's PCO2 has come down from 79-60 Time: 15:20 - Consultations Consultation #1: Hospitalist will admit patient Time: 14:15 Results - Labs CBC & BMP: 10/12/16 13:08 10/12/16 13:08 Lab Results: I have reviewed the patients labs Labs: Laboratory Tests 10/12/16 10/12/16 10/12/16 13:08 13:08 13:08 WBC 17.2 H RBC 5.04 Hgb 13.1 Hct 42.3 MCV 83.9 L MCH 26 L MCHC 31.0 L Plt Count 424 H Neut # (Auto) 9.0 H Lymph # (Auto) 5.4 H Murray # (Auto) 1.4 H Eos # (Auto) 1.1 H ABG pH 7.263 L ABG pCO2 75.9 H* ABG pO2 161.0 H ABG HCO3 28.1 H ABG Total CO2 30.6 H ABG O2 Saturation 99.3 ABG Base Excess 4.1 H Urine pH 7.0 Ur Specific [place] 1.004 Urine Urobilinogen < 2.0 H Urine Leukocytes Small H Urine RBC <1 Urine WBC 13 Laboratory Tests 10/12/16 13:08 INR 0.9 PT Patient/Control Mix 9.8 D Laboratory Tests 10/12/16 10/12/16 13:08 14:48 ABG pH 7.320 L ABG pCO2 60.4 H ABG pO2 60.3 L ABG HCO3 27.1 H ABG Total CO2 27.7 H ABG O2 Saturation 90.5 L ABG Base Excess 3.2 H FiO2 28.00 Sodium 139 Potassium 5.5 H Chloride 100 Carbon Dioxide 33 H BUN 17 Creatinine 0.80 BUN/Creatinine Ratio 21.00 H Troponin I < 0.015 Critical Care Time Critical Care Time: Yes Total Critical Care Time: 60 Disposition Clinical Impression: COPD exacerbation, Acute and chronic respiratory failure ([id number]), Leukocytosis, Bronchospasm, Acute exacerbation of COPD with asthma, Asthmatic bronchitis, Respiratory acidosis, Acute respiratory distress Case discussed with: patient Disposition: Still a Patient Condition: Guarded Time of Disposition: 14:17
[2016-10-12 14:00] LABS: INR 0.9; PT Patient Result 9.8 SECS
[2016-10-12 14:25] LABS: Alanine Aminotransferase 29 U/L (13-56); Albumin 3.7 G/DL (3.4-5.0); Alkaline Phosphatase 74 U/L (45-117); Aspartate Amino Transferase 41 U/L (0-37); Blood Urea Nitrogen 17 MG/DL (7-18); Calcium 8.9 MG/DL (8.5-10.1); Glucose 77 MG/DL (74-106); Magnesium 2.3 MG/DL (1.8-2.4); Osmolality,Calculated 277.5 MOS/KG (273-304); Potassium 5.5 MMOL/L (3.5-5.1); Sodium 139 MMOL/L (136-145); Total Protein 6.7 G/DL (6.4-8.3); Troponin I Only < 0.015 NG/ML (0.00-0.045)
[2016-10-12 14:54] LABS: ABG Base Excess 3.2 MMOL/L (-2.5-2.5); ABG HCO3 27.1 MMOL/L (20-26); ABG Oxygen Saturation 90.5 % (95-100); ABG PCO2 60.4 MM HG (35-48); ABG PO2 60.3 MM HG (80-95); ABG TCO2 27.7 MMOL/L (23-27); Allen Test Positive
--- NOTE | 2016-10-12 15:01 | Hospitalist History & Physical ---
<Andrea Hugo - Last Filed: 10/12/16 14:55> Assessment and Plan (1) Acute exacerbation of COPD with asthma Status: Acute Assessment and plan: We will start empiric antibiotics, inhaled bronchodilators, and intravenous corticosteroids. We will monitor her respiratory status very closely. Current Visit: Yes (2) Leucocytosis Status: Chronic Assessment and plan: WBCs were noted at 17.2. Antibiotics were given in the ED. We will continue to monitor. Current Visit: Yes History of Present Illness Chief complaint: Shortness of breath History of present illness: This is a 71-year-old chronically ill female that presented to the ED at [facility] this afternoon for evaluation of shortness of breath. The patient has a very extensive medical history significant for atrial fibrillation, congestive heart failure, hypertension, anxiety, bipolar disorder, dementia, migraine headaches, asthma, chronic obstructive pulmonary disease, chronic urinary tract infections, stress incontinence, GERD, prolapse of the bladder and anemia. The patient has a surgical history significant for cholecystectomy and hysterectomy. The patient reports the onset of symptoms on yesterday afternoon. In addition she reports that the symptoms became worse and she decided to come to the ED for further evaluation. At the time of presentation, the patient was experiencing obvious respiratory impairment. Hematology panel was obtained which reported her white place blood cell count at 17.2, hemoglobin of 13.1, hematocrit 42.3, and platelet at 424. Coagulation panels were obtained which reported her INR at 0.9. Arterial blood gases were obtained which reported her pH at 7.32, PO2 at 60.3, HC of 3 at 27.1. Chemistry panel was obtained which reported a sodium at 139, potassium of 5.5, chloride at 100, carbon dioxide at 33, BUN is 17, creatinine at 0.80, glucose of 77, calcium 8.9, magnesium 2.3, total bilirubin is 0.40, AST 41, ALT at 29, alkaline phosphatase is 74, total protein is 6.7, albumin at 3.7, a globulin at 3.0. Cardiac enzymes were obtained which reported a troponin at less than 0.015. Urinalysis was obtained which was essentially unremarkable. Chest x-ray was obtained which reported the cardiomediastinal silhouette stable in configuration, chronic changes of the lungs without focal consolidation, pleural effusion, or pneumothorax; however no acute cardiopulmonary process is demonstrated. Brief discussion with both Dr. Rubio and Dr. Tam, the patient will be admitted to the hospitalist services for continuation of care. We will consult pulmonology to evaluate and follow during the clinical encounter. Home Medications Medication Instructions Recorded Confirmed Type Gabapentin 100 mg PO BID 03/10/16 10/12/16 History Sertraline [Zoloft] 25 mg PO BEDTIME 03/10/16 10/12/16 History Theophylline ER Tab (24 Hr) 400 mg PO DAILY 03/10/16 10/12/16 History Albuterol/Ipratropium Neb [Duoneb] 3 ml RESP TX RT Q6H 09/16/16 10/12/16 Rx dilTIAZem HCl [Cartia XT] 180 mg PO BID #60 09/16/16 10/12/16 Rx Allergies Allergy/AdvReac Type Severity Reaction Status Date / Time Latex, Natural Rubber Allergy Severe ANAPHYLAXIS Verified 08/16/16 08:57 Penicillins Allergy Severe ANAPHYLAXIS Verified 08/16/16 08:57 celecoxib [From Celebrex] Allergy Unknown ANAPHYLAXIS Verified 08/16/16 08:57 codeine Allergy Unknown ANAPHYLAXIS Verified 08/16/16 08:57 Shellfish Allergy Unknown ANAPHYLAXIS Verified 08/16/16 08:57 strawberry AdvReac Severe Vomiting Verified 08/16/16 08:57 lisinopril AdvReac ANAPHYLAXIS Verified 08/16/16 08:57 BABY POWDER Allergy RASH Uncoded 08/16/16 08:57 Medical,Surgical,& Family Hx - Medical History Cardio: History of: Cardiac Dysrhythmia (a-fib), CHF, Hypertension Psychological: History of: Anxiety Disorders, Bipolar Disorder, Depression, Psychiatric Problems (depressed mood aeb sadness, hopelessness, and inability to cope with daily) No history of: Behavior Problems, Previous Suicide Attempt, Psychiatric/ Substance Abuse Tx, Schizophrenia, Violent Behavior Neurology: History of: Dementia, Migraine No history of: Brain Aneurysm, Cerebral Hemorrhage, Cerebrovascular Accident , Cerebral Palsy, Seizures, TIA, Vertigo HEENT: History of: Dental Problems (MISSING TEETH) Endocrine: No history of: Diabetes Mellitus (IDDM), Diabetes Mellitus (NIDDM), Thyroid Disorder Respiratory: History of: Asthma, COPD, Pneumonia, Respiratory Problems (BORN PREMATURE;HAD LUNG PROBLEMS.) Renal: No history of: Dialysis, Renal Failure Genitourinary: History of: Bladder Problem (HX PROLAPSE BLADDER), Recurring Urinary Tract Infections, Problems (STRESS INCONTINENCE) No history of: Kidney Stones Gastrointestinal: History of: GERD, GI Problems Musculoskeletal: History of: Musculoskeletal Problems (MUSCLE WEAKNESS.) No history of: Amputation Hematology: History of: Anemia, Blood Transfusion Reaction (NOT SURE) Other: History of: Miscellaneous Medical Problems (DJD) - Surgical History Cardiac Surgeries: Patient Denies: Cardiac Catheterization Thoracic Surgeries: Patient denies;: Organ Transplant, Lobectomy Neurologic Surgeries: Patient denies: Brain Aneurysm, Cerebral Hemorrhage, Neurologic Surgery HEENT Surgeries: Patient denies: Eye Surgery, Thyroid Surgery, Tonsilectomy & Adenoidectomy Abdominal Surgeries: Surgical HX of: Abdominal Surgery, Cholecystectomy Reproductive Surgeries: Surgical HX of;: Gynecologic Surgery, Hysterectomy Patient denies;: Dilation and Curettage, Genitourinary Surgery - Family History Family History: Reports;: Family Diabetes (BROTHER), Family Hypertension ( BROTHER RECENT 1-2 MONTHS AGO.), Family Psychiatric Problems (BROTHER) Denies;: Family Anesthesia Reaction, Family Cancer, Family Heart Disease, Family Stroke - Social History Smoking Status: Former smoker Frequency of Alcohol Use: Unknown Type of Drug Use: None 12 point system: reviewed and no additional remarkable complaints except as stated Exam - Constitutional Vitals: Period Temp Pulse Resp BP Sys/Montes Pulse Ox Last 24 Hr 98.2 F-98.2 F 105-106 29-29 147-147/81-81 92 General appearance: under weight - Head Head exam: Present: normal inspection, normocephalic, atraumatic - Eye Eye exam: Present: EOMI. Absent: conjunctival injection, nystagmus Pupils: Present: LEONARD, normal accommodation - ENT ENT exam: Present: normal exam, normal external ear exam, normal oropharynx - Neck Neck exam: Present: normal inspection. Absent: lymphadenopathy, meningismus, tenderness, thyromegaly - Respiratory Respiratory exam: Present: accessory muscle use, wheezes - Cardiovascular Cardiovascular exam: Present: tachycardia. Absent: carotid bruit, diastolic murmur, gallop, JVD, rubs, systolic murmur - GI/Abdominal GI/Abdominal exam: Present: normal bowel sounds, soft. Absent: firm, guarding, mass - Extremities Exam Extremities exam: Present: normal inspection, normal capillary refill, full ROM. Absent: edema - Back Exam Back exam: Present: normal inspection - Neurological Exam Neurological exam: Present: alert, oriented X3, CN II-XII intact - Psychiatric Psychiatric exam: Present: agitated, anxious - Skin Skin exam: Present: normal color Results - Labs CBC & BMP: 10/12/16 13:08 10/12/16 13:08 Lab Results: I have reviewed the past 24 hour labs <YonatanJamilah Lesly - Last Filed: 10/12/16 19:08> Assessment and Plan (1) Acute exacerbation of COPD with asthma Status: Acute Assessment and plan: Continue azithromycin and meropenem. Continue duo nebs every 4 hours and steroids. Current Visit: Yes (2) Acute and chronic respiratory failure ([id number]) Status: Acute Assessment and plan: Due to COPD exacerbation. Current Visit: Yes Qualifiers: Respiratory failure complication: hypoxia Qualified Code(s): J96.21 - Acute and chronic respiratory failure with hypoxia (3) Hyperkalemia Status: Acute Assessment and plan: Recheck in a.m. Current Visit: Yes (4) History of atrial fibrillation Status: Acute Assessment and plan: Continue diltiazem for rate control. Currently in sinus rhythm Current Visit: Yes (5) Anxiety Status: Acute Assessment and plan: Continue Zoloft for anxiety and depression Current Visit: No (6) Essential hypertension Status: Chronic Assessment and plan: Continue diltiazem 180 mg p.o. daily Current Visit: No (7) UTI (urinary tract infection) Status: Acute Assessment and plan: History of ESBL E. coli. Her UA is positive again we will await cultures and start her on meropenem I am aware of her penicillin allergy Current Visit: Yes History of Present Illness History of present illness: Ms. Lanza is a 71 year old female patient seen and examined. History and physical reviewed and edited Medical,Surgical,& Family Hx - Social History Marital Status: Single Lives With:: Alone Functional capacity: independent ambulation - Constitutional Constitutional: Present: headache(s). Absent: fever(s) - EENT Eyes: Absent: blurry vision, diplopia Ears: Absent: decreased hearing, ear discharge Nose, mouth and throat: Present: headache(s). Absent: sore throat - Cardiovascular Cardiovascular: Present: dyspnea, dyspnea on exertion. Absent: chest pain at rest, edema - Respiratory Respiratory: Present: cough, dyspnea, dyspnea on exertion, wheezing. Absent: change in phlegm color - Gastrointestinal Gastrointestinal: Present: diarrhea. Absent: constipation, nausea, vomiting - Genitourinary Genitourinary: Absent: difficulty urinating, dysuria - Neurological Neurological: Present: behavioral changes, headache(s). Absent: focal weakness - Psychiatric Psychiatric: Present: anxiety, depression - Endocrine Endocrine: Present: cold intolerance, fatigue - Hematologic/Lymphatic Hematologic/Lymphatic: Present: easy bleeding, easy bruising Exam - Constitutional Vitals: Period Temp Pulse Resp BP Sys/Montes Pulse Ox Last 24 Hr 98.2 F-98.3 F 105-120 20-29 136-172/67-103 89-97 General appearance: mild distress - Eye Eye exam: Absent: scleral icterus - Neurological Exam Neurological exam: Present: reflexes normal. Absent: motor sensory deficit Results - Labs CBC & BMP: 10/12/16 13:08 10/12/16 13:08 - EKG EKG shows: tachycardia, sinus rhythm - Diagnostic Findings Procedure: Chest x-ray: report reviewed by me (COPD nothing acute)
[2016-10-12] MEDS ORDERED: ALBUTEROL/IPRATROPIUM 3 ML NEB RESP TX ONE (17:00)
[2016-10-12] MEDS ORDERED: ALBUTEROL 2.5 MG/3 ML NEB RESP TX ONE (17:35)
[2016-10-12] MEDS: methylPREDNISolone SOD SUC 125 MG/2 ML VIAL IV SCH ×2 (17:47→21:04)
[2016-10-12] MEDS: MEROPENEM 500 MG in SODIUM CHLORIDE 0.9% 100 ML IV SCH (18:44)
[2016-10-12] MEDS: ALBUTEROL/IPRATROPIUM 3 ML NEB RESP TX SCH (19:53)
[2016-10-12] MEDS: GABAPENTIN 100 MG CAPSULE PO SCH (21:08)
[2016-10-12] MEDS: DILTIAZEM CD 180 MG CAPSULE PO SCH (21:08)
[2016-10-12] MEDS: SERTRALINE 25 MG TABLET PO SCH (21:08)
[2016-10-13] MEDS: ALBUTEROL/IPRATROPIUM 3 ML NEB RESP TX SCH ×7 (00:08→23:02)
[2016-10-13] MEDS: methylPREDNISolone SOD SUC 125 MG/2 ML VIAL IV SCH ×4 (02:30→20:14)
[2016-10-13] MEDS: MEROPENEM 500 MG in SODIUM CHLORIDE 0.9% 100 ML IV SCH ×3 (02:34→17:43)
[2016-10-13 06:17] LABS: Basophils % 0.1 % (0.0-0.8); Hematocrit 43.1 VOL% (35.7-47.0); Hemoglobin 13.2 GM/DL (12.0-16.0); Immature Granulocytes % 0.8 %; Immature Granulocytes Absolute 0.11 #; Mean Corpuscular HGB Conc 30.6 GM/DL (32-36); Mean Corpuscular Hemoglobin 26 PG (27-34); Mean Corpuscular Volume 86.2 FL (87-102); Mean Platelet Volume 9.1 FL (9.6-12.0); Monocytes # 0.1 10*3/uL (0.11-0.8); Monocytes % 0.5 % (1.7-12.7); Neutrophils # 13.1 10*3/uL (1.4-7.4); Neutrophils % 91.6 % (38.7-73.9); Platelet Count 407 T/CUMM (130-400); Red Cell Distribution Width 16.5 % (9.3-17.3); White Blood Count 14.3 T/CUMM (4-12)
[2016-10-13 06:41] LABS: Band Neutrophils 1 % (0-10); Hypochromasia 1+; Lymphocytes 7 % (20-55); Platelet Estimate Adequate; Segmented Neutrophils 92 % (50-85); Total Cells Counted 100
--- NOTE | 2016-10-13 06:56 | Physician Query Form ---
CLICK EDIT DOCUMENT TO SELECT QUERY ANSWER --> OK --> SIGN Lidia Swan RN, CCDS Certified Clinical Plug And Mold Finisher W) [phone] (f) [phone] [email or web address]: Make your selection(s) from the choices in EACH section by typing an "x" and enter comments in the comment section. Please use your independent medical judgment in providing your response. This request does not imply that any particular answer is desired or expected. CLINICAL INDICATORS: (Providers should not edit this section) Patient was admitted with COPD exacerbation and asthma, "start empiric antibiotics, inhaled bronchodilators, and intravenous corticosteroids". Based on documentation of Asthma, can you please provide further specificity regarding the diagnosis? ( ) Mild intermittent extrinsic asthma with acute exacerbation ( ) Mild persistent extrinsic asthma with acute exacerbation (x ) Moderate persistent extrinsic asthma with acute exacerbation ( ) Severe persistent extrinsic asthma with acute exacerbation ( ) Mild intermittent extrinsic asthma with status asthmaticus ( ) Mild persistent extrinsic asthma with status asthmaticus ( ) Moderate persistent extrinsic asthma with status asthmaticus ( ) Severe intermittent extrinsic asthma with status asthmaticus ( ) Other, please specify: ( ) Clinically unable to determine COMMENTS: PLEASE ALSO DOCUMENT RESPONSE IN PROGRESS NOTES AND/OR DISCHARGE SUMMARY Use of terms such as suspected, likely, or probable (associated with a specific diagnosis that is being evaluated, monitored, or treated as if it exists) are acceptable and can be restated in the discharge summary if not ruled out. MTDD
--- NOTE | 2016-10-13 07:34 | XRay Report ---
XR chest 1V portable Indication: SOB Comparison: Chest x-ray dated October 12, 2016 Technique: Single frontal view of the chest Findings: Continued mild cardiomegaly. Chronic change of the lungs present. There is mild patchy opacification within the lingula which obscures the left heart border. This is suspicious for pneumonia. Recommend follow-up imaging to document resolution and exclude underlying pulmonary nodule. Visualized osseous and surrounding soft tissue structures appear grossly unchanged. IMPRESSION: As above. PROCEDURE INTERPRETED AT [facility] DEPARTMENT OF RADIOLOGY Final Report Signed by: Dr Roberto Suarez
[2016-10-13 07:50] LABS: Magnesium 2.5 MG/DL (1.8-2.4); Potassium 5.5 MMOL/L (3.5-5.1)
--- NOTE | 2016-10-13 08:13 | EKG Report ---
Stationary ECG Study [facility] ER Test Date: 10/12/2016 2:30:48 PM Pat Name: ANAND HERNANDEZ Department: Room: 542 Gender: F Dressmaker Or Tailor: : 1945 Requested by: Azeem Stratton Order Number: [id number] Patric MD: SONI PERDUE Intervals [place] Rate: 119 P: 80 IA: 176 QRS: 124 QRSD: 87 T: -8 QT: 309 QTc: 380 Interpretive Statements SINUS TACHYCARDIA POSSIBLE RIGHT VENTRICULAR HYPERTROPHY Electronically Signed On 10-14-16 17:00:47 CDT by SONI PERDUE [email or web address]
[2016-10-13] MEDS: GABAPENTIN 100 MG CAPSULE PO SCH ×2 (09:00→20:13)
[2016-10-13] MEDS: DILTIAZEM CD 180 MG CAPSULE PO SCH ×2 (09:00→20:13)
[2016-10-13] MEDS: THEOPHYLLINE ER (24 HR) 400 MG TABLET PO SCH (09:01)
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
[2016-10-13] MEDS: acetaZOLAMIDE 250 MG TABLET PO SCH ×2 (12:18→20:14)
[2016-10-13 13:06] LABS: % Iron Saturation 6.5 % (18-50)
[2016-10-13 13:16] LABS: Free T4 (Free Thyroxine) 0.79 NG/DL (0.76-1.46); Thyroid Stimulating Hormone 0.809 uIU/ml (0.358-3.74)
[2016-10-13] MEDS: AZITHROMYCIN INJ 500 MG in SODIUM CHLORIDE 0.9% 250 ML IV SCH (13:47)
[2016-10-13 14:02] LABS: Folate > 24.0 NG/ML (5.4-24.0); Vitamin B12 749 PG/ML (211-911)
--- NOTE | 2016-10-13 14:27 | Hospitalist Progress Note ---
Assessment and Plan (1) Acute exacerbation of COPD with asthma Status: Acute Assessment and plan: Continue azithromycin and meropenem. Continue duo nebs every 4 hours and steroids. Current Visit: Yes (2) Acute and chronic respiratory failure ([id number]) Status: Acute Assessment and plan: Due to COPD exacerbation. Current Visit: Yes Qualifiers: Respiratory failure complication: hypoxia Qualified Code(s): J96.21 - Acute and chronic respiratory failure with hypoxia (3) Hyperkalemia Status: Acute Assessment and plan: still high will give kayexalate Current Visit: Yes (4) History of atrial fibrillation Status: Acute Assessment and plan: Continue diltiazem for rate control. Currently in sinus rhythm Current Visit: Yes (5) Anxiety Status: Acute Assessment and plan: Continue Zoloft for anxiety and depression, add low dose buspar Current Visit: No (6) Essential hypertension Status: Chronic Assessment and plan: Continue diltiazem 180 mg p.o. daily Current Visit: No (7) UTI (urinary tract infection) Status: Acute Assessment and plan: History of ESBL E. coli. Her UA is positive, cx negative times one day. Cont meropenem for now Current Visit: Yes Hospitalist: Subjective Interval history: Patient says she is feeling better today but she feels that a lot of this is anxiety driven. I did reassure her however though she was truly short of breath yesterday. I feel like the rain might have induced her COPD exacerbation for her. Exam - Constitutional Vitals: Period Temp Pulse Resp BP Sys/Montes Pulse Ox Last 24 Hr 97.9 F-98.6 F 87-115 16-24 123-151/63-103 94-99 Exam: Heart Rate-[RRR] Lungs-[diminished but better than yesterday, few wheezes ] GI-[+bs soft, NT] Ext-[no edema] Neuro [Motor 5/5], [alert and oriented times 3] psych [normal mood and affect] General [no acute distress] Results - Labs CBC & BMP: 10/13/16 05:56 10/13/16 05:56 Lab Results: I have reviewed the past 24 hour labs Labs: Blood cultures 2 negative, urine culture negative,
[2016-10-13] MEDS ORDERED: SODIUM POLYSTYRENE SULFATE 15 GM/60 ML BOTTLE PO ONE (14:30)
[2016-10-13] MEDS: SERTRALINE 25 MG TABLET PO SCH (20:13)
[2016-10-14] MEDS: methylPREDNISolone SOD SUC 125 MG/2 ML VIAL IV SCH ×2 (02:03→08:45)
[2016-10-14] MEDS: MEROPENEM 500 MG in SODIUM CHLORIDE 0.9% 100 ML IV SCH ×4 (02:06→17:40)
[2016-10-14] MEDS: ALBUTEROL/IPRATROPIUM 3 ML NEB RESP TX SCH ×6 (02:33→23:57)
[2016-10-14 02:40] LABS: ABG Base Excess 0.8 MMOL/L (-2.5-2.5); ABG HCO3 25.1 MMOL/L (20-26); ABG PCO2 51.9 MM HG (35-48); ABG PH 7.332 (7.35-7.45); ABG PO2 97.2 MM HG (80-95); ABG TCO2 24.9 MMOL/L (23-27); Allen Test Positive
[2016-10-14 06:34] LABS: Calcium 8.6 MG/DL (8.5-10.1); Magnesium 2.3 MG/DL (1.8-2.4); Osmolality,Calculated 296.6 MOS/KG (273-304); Potassium 3.5 MMOL/L (3.5-5.1)
[2016-10-14 07:34] LABS: Basophils % 0.1 % (0.0-0.8); Hematocrit 37.7 VOL% (35.7-47.0); Hemoglobin 11.6 GM/DL (12.0-16.0); Immature Granulocytes % 0.9 %; Immature Granulocytes Absolute 0.27 #; Lymphocytes # 0.9 10*3/uL (1.4-4.0); Lymphocytes % 3.2 % (21.3-54.2); Mean Corpuscular HGB Conc 30.8 GM/DL (32-36); Mean Corpuscular Hemoglobin 26 PG (27-34); Mean Corpuscular Volume 85.7 FL (87-102); Monocytes # 0.4 10*3/uL (0.11-0.8); Monocytes % 1.4 % (1.7-12.7); Neutrophils # 27.5 10*3/uL (1.4-7.4); Neutrophils % 94.4 % (38.7-73.9); Platelet Count 404 T/CUMM (130-400); Red Cell Distribution Width 16.8 % (9.3-17.3); White Blood Count 29.2 T/CUMM (4-12)
--- NOTE | 2016-10-14 07:54 | XRay Report ---
Exam: Chest 2 views Date: October 14, 2016 at 6:38 AM Comparison: Chest one view portable October 13, 2016 Reason: Pneumonia Findings: The cardiac silhouette is upper normal in size, and there is prominent calcified plaque at the aortic arch. There are mild opacities at the left lung base which could represent atelectasis or pneumonia. No pneumothorax is identified, but there is minimal left pleural fluid. The osseous structures appear stable. Impression: There has been no significant change. PROCEDURE INTERPRETED AT [facility] DEPARTMENT OF RADIOLOGY Final Report Signed by: Dr. Magdalena Estrada
[2016-10-14 08:19] LABS: Acanthocytes Few; Band Neutrophils 3 % (0-10); Hypochromasia 1+; Lymphocytes 5 % (20-55); Microcytosis 1+; Ovalocytes Slight; Segmented Neutrophils 91 % (50-85); Total Cells Counted 100
[2016-10-14 08:20] LABS: Platelet Estimate Normal
[2016-10-14] MEDS: GABAPENTIN 100 MG CAPSULE PO SCH ×2 (08:45→20:13)
[2016-10-14] MEDS: THEOPHYLLINE ER (24 HR) 400 MG TABLET PO SCH (08:45)
[2016-10-14] MEDS: acetaZOLAMIDE 250 MG TABLET PO SCH ×2 (08:45→20:13)
[2016-10-14] MEDS: DILTIAZEM CD 180 MG CAPSULE PO SCH ×2 (08:45→20:13)
[2016-10-14] MEDS: FERROUS SULFATE 325 MG TABLET PO SCH ×2 (10:54→20:13)
--- NOTE | 2016-10-14 11:07 | Pulmonology Progress Note ---
Pulmonary - PN: Subj Interval history: Adrian Mcgovern, ANP-BC, GNP-BC, acting as scribe for Dr. Arturo Baxter Ms. Lanza is a 71-year-old white female who we saw in initial pulmonary consultation on 10/13/2016. At that time, our impressions were: #1: Acute lingular pneumonia #2: Acute exacerbation of COPD/asthma #3: CO2 retention #4: Bipolar disorder #5: Anxiety and depression #6: Hypertension #7: History of atrial fibrillation #8: Gastroesophageal reflux disease #9: History of anemia #10: Prolapsed bladder #11: History of recurrent UTIs #12: Stress incontinence #13: Hyperkalemia #14: Hypermagnesemia #15: Acute kidney injury #16: See past history 10/14/2016. Patient was seen today along with Nona Frazier RN. Chest x-ray shows that the patient's previously noted lingular pneumonia has resolved. She has an acute urinary tract infection which is most likely the cause of the patient's elevated white count in addition to her pneumonia. Clinically, the patient is doing remarkably well. She is less short of breath. She states that she overall feels improved since admission. Urine culture is pending, but is growing a gram-negative tatum. She is presently on Merrem and azithromycin. Blood cultures are negative thus far. Cold agglutinins are equivocal, so we will repeat these today. As stated before, the patient is already on azithromycin. Medications have been reviewed. Labs been reviewed. White count is 29,200 with 94.4% segs; H&H 11.6/37.7 with decreased indices and top normal red blood cell distribution with; platelet count 404,000; creatinine 1.00, BUN 28, sodium 146, potassium 3.5, magnesium 2.3 ; iron is low at 26, iron saturation is low at 6.5, and total iron-binding capacity is normal at 399 [employer] with iron deficiency anemia; folate is greater than 24.0, B12 749; TSH and free T4 normal at 0.809 and 0.79 respectively ABGs this morning on an FiO2 28% show pH of 7.332, PCO2 51.9, PO2 97.2, bicarb 25.1, and oxygen saturation 98.0% Exam (Progress Note) - Constitutional Vitals: Period Temp Pulse Resp BP Sys/Montes Pulse Ox Last 24 Hr 97.6 F-99.6 F 77-118 17-24 107-137/58-83 95-99 Exam: Chest is hyperinflated, but fairly clear Heart no gallop Abdomen is nontender nondistended; bowel sounds are positive 4 Extremities with nothing to suggest acute deep venous thrombophlebitis Psychiatric presently oriented 3 Neurologic long-term motor function is intact Plan: Repeat cold agglutinins today. Start ferrous sulfate 325 mg p.o. twice daily for iron deficiency anemia. Follow-up urine culture when available. See orders. Results - Labs CBC & BMP: 10/14/16 05:20 10/14/16 05:20
[2016-10-14] MEDS: AZITHROMYCIN INJ 500 MG in SODIUM CHLORIDE 0.9% 250 ML IV SCH (15:05)
--- NOTE | 2016-10-14 15:35 | Hospitalist Progress Note ---
Assessment and Plan (1) Acute exacerbation of COPD with asthma Status: Acute Assessment and plan: Continue azithromycin and meropenem. Continue duo nebs every 4 hours and steroids. Current Visit: Yes (2) Acute and chronic respiratory failure ([id number]) Status: Acute Assessment and plan: Due to COPD exacerbation. Concerned about elevated white count Current Visit: Yes Qualifiers: Respiratory failure complication: hypoxia Qualified Code(s): J96.21 - Acute and chronic respiratory failure with hypoxia (3) Hyperkalemia Status: Acute Assessment and plan: Resolved with Kayexalate Current Visit: Yes (4) History of atrial fibrillation Status: Acute Assessment and plan: Continue diltiazem for rate control. Currently in sinus rhythm Current Visit: Yes (5) Anxiety Status: Acute Assessment and plan: Continue Zoloft for anxiety and depression, add low dose buspar Current Visit: No (6) Essential hypertension Status: Chronic Assessment and plan: Continue diltiazem 180 mg p.o. twice daily Current Visit: No (7) UTI (urinary tract infection) Status: Acute Assessment and plan: History of ESBL E. coli. UA positive but not enough colonies to be consistent with active infection. Current Visit: Yes Hospitalist: Subjective Interval history: Patient asking to go home but is not ready to go home today. Administered her into BuSpar today for anxiety. Worried about her increasing white count. She is not running fevers. Exam - Constitutional Vitals: Period Temp Pulse Resp BP Sys/Montes Pulse Ox Last 24 Hr 97.6 F-99.6 F 77-118 17-22 107-138/58-83 95-99 Exam: Heart Rate-[tacky] Lungs-[few wheezes but better than yesterday. GI-[+bs soft, NT] Ext-[no edema] Neuro [Motor 5/5], [alert and oriented times 3] psych [anxious mood and affect] General [no acute distress] Results - Labs CBC & BMP: 10/14/16 05:20 10/14/16 05:20 Lab Results: I have reviewed the past 24 hour labs - Diagnostic Findings Procedure: Chest x-ray: report reviewed by me (Unchanged)
[2016-10-14] MEDS: methylPREDNISolone SOD SUC 40 MG/1 ML VIAL IV SCH (20:12)
[2016-10-14] MEDS: SERTRALINE 25 MG TABLET PO SCH (20:13)
[2016-10-14] MEDS: busPIRone 5 MG TABLET PO SCH (20:13)
[2016-10-15] MEDS: MEROPENEM 500 MG in SODIUM CHLORIDE 0.9% 100 ML IV SCH ×5 (03:20→17:40)
[2016-10-15] MEDS: ALBUTEROL/IPRATROPIUM 3 ML NEB RESP TX SCH ×6 (04:28→23:25)
[2016-10-15 05:29] LABS: Hematocrit 36.4 VOL% (35.7-47.0); Hemoglobin 11.1 GM/DL (12.0-16.0); Immature Granulocytes % 1.4 %; Immature Granulocytes Absolute 0.33 #; Lymphocytes # 0.8 10*3/uL (1.4-4.0); Lymphocytes % 3.1 % (21.3-54.2); Mean Corpuscular HGB Conc 30.5 GM/DL (32-36); Mean Corpuscular Hemoglobin 26 PG (27-34); Mean Corpuscular Volume 86.1 FL (87-102); Mean Platelet Volume 9.6 FL (9.6-12.0); Monocytes # 0.4 10*3/uL (0.11-0.8); Monocytes % 1.5 % (1.7-12.7); Neutrophils # 22.9 10*3/uL (1.4-7.4); Platelet Count 357 T/CUMM (130-400); Red Blood Count 4.23 MC/CUMM (3.8-5.5); Red Cell Distribution Width 16.7 % (9.3-17.3); White Blood Count 24.4 T/CUMM (4-12)
[2016-10-15 05:51] LABS: Band Neutrophils 2 % (0-10); Burr Cells Slight; Hypochromasia 1+; Lymphocytes 4 % (20-55); Ovalocytes Slight; Platelet Estimate Adequate; Segmented Neutrophils 92 % (50-85); Total Cells Counted 100
[2016-10-15 05:52] LABS: Microcytosis 1+
[2016-10-15 05:59] LABS: Calcium 8.2 MG/DL (8.5-10.1); Magnesium 2.3 MG/DL (1.8-2.4); Osmolality,Calculated 300.6 MOS/KG (273-304); Potassium 2.6 MMOL/L (3.5-5.1)
[2016-10-15] MEDS: busPIRone 5 MG TABLET PO SCH ×3 (08:20→21:17)
[2016-10-15] MEDS: DILTIAZEM CD 180 MG CAPSULE PO SCH ×2 (08:20→21:18)
[2016-10-15] MEDS: GABAPENTIN 100 MG CAPSULE PO SCH ×2 (08:20→21:18)
[2016-10-15] MEDS: methylPREDNISolone SOD SUC 40 MG/1 ML VIAL IV SCH (08:20)
[2016-10-15] MEDS: acetaZOLAMIDE 250 MG TABLET PO SCH ×2 (08:21→21:17)
[2016-10-15] MEDS: THEOPHYLLINE ER (24 HR) 400 MG TABLET PO SCH (08:21)
[2016-10-15] MEDS: FERROUS SULFATE 325 MG TABLET PO SCH ×2 (08:21→21:17)
--- NOTE | 2016-10-15 10:22 | Pulmonology Progress Note ---
Pulmonary - PN: Subj Interval history: Ms. Lanza is a 71-year-old white female who we saw in initial pulmonary consultation on 10/13/2016. At that time, our impressions were: #1: Acute lingular pneumonia #2: Acute exacerbation of COPD/asthma #3: CO2 retention #4: Bipolar disorder #5: Anxiety and depression #6: Hypertension #7: History of atrial fibrillation #8: Gastroesophageal reflux disease #9: History of anemia #10: Prolapsed bladder #11: History of recurrent UTIs #12: Stress incontinence #13: Hyperkalemia #14: Hypermagnesemia #15: Acute kidney injury #16: See past history 10/14/2016. Patient was seen today along with Nona Frazier RN. Chest x-ray shows that the patient's previously noted lingular pneumonia has resolved. She has an acute urinary tract infection which is most likely the cause of the patient's elevated white count in addition to her pneumonia. Clinically, the patient is doing remarkably well. She is less short of breath. She states that she overall feels improved since admission. Urine culture is pending, but is growing a gram-negative tatum. She is presently on Merrem and azithromycin. Blood cultures are negative thus far. Cold agglutinins are equivocal, so we will repeat these today. As stated before, the patient is already on azithromycin. Medications have been reviewed. Labs been reviewed. White count is 29,200 with 94.4% segs; H&H 11.6/37.7 with decreased indices and top normal red blood cell distribution with; platelet count 404,000; creatinine 1.00, BUN 28, sodium 146, potassium 3.5, magnesium 2.3 ; iron is low at 26, iron saturation is low at 6.5, and total iron-binding capacity is normal at 399 CV TECH with iron deficiency anemia; folate is greater than 24.0, B12 749; TSH and free T4 normal at 0.809 and 0.79 respectively ABGs this morning on an FiO2 28% show pH of 7.332, PCO2 51.9, PO2 97.2, bicarb 25.1, and oxygen saturation 98.0% 10/15/2016. Patient's alert and oriented today she says her breathing is fine her chest sounds much better. She has a persistent elevation of white blood cell count. I think this is a leukemoid reaction which she has had in the past. Patient is growing a gram-negative tatum from her urine. ID and sensitivities are pending. There are no new complaints and no new problems. Dr. Tam and I have reviewed the case and coordinated our care. Exam (Progress Note) - Constitutional Vitals: Period Temp Pulse Resp BP Sys/Montes Pulse Ox Last 24 Hr 97.6 F-99.6 F 77-118 17-24 107-137/58-83 95-99 Exam: Vital signs. See below Face. Symmetrical. Lips and tongue are normal. Neck. Symmetrical. No meningismus. Lymphatics. No submandibular cervical supraclavicular or epitrochlear adenopathy. Chest is hyperinflated, but fairly clear. Expiration is improved significantly. Heart no gallop Abdomen is nontender nondistended; bowel sounds are positive 4 Extremities with nothing to suggest acute deep venous thrombophlebitis Psychiatric presently oriented 3 Neurologic long-term motor function is intact Plan: 10/14/2016. 1. Repeat cold agglutinins today. 2. Start ferrous sulfate 325 mg p.o. twice daily for iron deficiency anemia. 3. Follow-up urine culture when available. See orders. 10/15/2016. 1. See today's note above. Exam (Progress Note) - Constitutional Vitals: Period Temp Pulse Resp BP Sys/Montes Pulse Ox Last 24 Hr 97.9 F-98.1 F 93-118 15-22 124-144/54-70 93-100 Results - Labs CBC & BMP: 10/15/16 05:07 10/15/16 05:07
--- NOTE | 2016-10-15 12:31 | Hospitalist Progress Note ---
Assessment and Plan (1) Acute exacerbation of COPD with asthma Status: Acute Assessment and plan: In speaking with Dr. Baxter he feels she had a component of lingula pneumonia. Continue azithromycin and meropenem. Continue duo nebs every 4 hours and steroids. White count is improving Current Visit: Yes (2) Acute and chronic respiratory failure ([id number]) Status: Acute Assessment and plan: Due to COPD exacerbation and lingula pneumonia Current Visit: Yes Qualifiers: Respiratory failure complication: hypoxia Qualified Code(s): J96.21 - Acute and chronic respiratory failure with hypoxia (3) Hyperkalemia Status: Acute Assessment and plan: Now her potassium is too low and we will have to give her 2 doses of potassium. Current Visit: Yes (4) History of atrial fibrillation Status: Acute Assessment and plan: Continue diltiazem Current Visit: Yes (5) Anxiety Status: Acute Assessment and plan: Improved with BuSpar 3 times daily Current Visit: No (6) Essential hypertension Status: Chronic Assessment and plan: Controlled Current Visit: No (7) UTI (urinary tract infection) Status: Acute Assessment and plan: Not enough colonies to be considered active infection no antibiotics needed Current Visit: Yes Hospitalist: Subjective Interval history: Discussed case with Dr. Rolando Baxter. White count is better today. Patient seems better. Patient will most likely be discharged home tomorrow. Physical therapy is seen her today. Her potassium is low needs to be replaced. She denies any nausea vomiting or diarrhea. Exam - Constitutional Vitals: Period Temp Pulse Resp BP Sys/Montes Pulse Ox Last 24 Hr 97.9 F-98.6 F 93-118 15-20 124-144/54-70 93-100 Exam: Heart Rate-[tacky] Lungs-[clear but diminished GI-[+bs soft, NT] Ext-[no edema] Neuro [Motor 5/5], [alert and oriented times 3] psych [anxious mood and affect] General [no acute distress] Results - Labs CBC & BMP: 10/15/16 05:07 10/15/16 05:07 Lab Results: I have reviewed the past 24 hour labs Labs: Blood cultures 2 negative, urine positive for ESBL E. coli, stools negative for C. difficile.
[2016-10-15] MEDS: POTASSIUM CHLORIDE 20 MEQ TABLET PO SCH ×2 (12:50→21:17)
[2016-10-15] MEDS: SERTRALINE 25 MG TABLET PO SCH (21:17)
[2016-10-16] MEDS: ALBUTEROL/IPRATROPIUM 3 ML NEB RESP TX SCH ×3 (02:23→11:57)
[2016-10-16] MEDS: MEROPENEM 500 MG in SODIUM CHLORIDE 0.9% 100 ML IV SCH ×2 (02:53→10:54)
[2016-10-16 06:02] LABS: Basophils % 0.2 % (0.0-0.8); Hematocrit 37.4 VOL% (35.7-47.0); Hemoglobin 11.4 GM/DL (12.0-16.0); Immature Granulocytes % 3.4 %; Immature Granulocytes Absolute 0.66 #; Lymphocytes # 1.6 10*3/uL (1.4-4.0); Lymphocytes % 8.2 % (21.3-54.2); Mean Corpuscular HGB Conc 30.5 GM/DL (32-36); Mean Corpuscular Hemoglobin 26 PG (27-34); Mean Corpuscular Volume 86.2 FL (87-102); Mean Platelet Volume 9.9 FL (9.6-12.0); Monocytes # 1.1 10*3/uL (0.11-0.8); Monocytes % 5.9 % (1.7-12.7); Neutrophils # 15.8 10*3/uL (1.4-7.4); Neutrophils % 82.3 % (38.7-73.9); Platelet Count 374 T/CUMM (130-400); Red Blood Count 4.34 MC/CUMM (3.8-5.5); White Blood Count 19.2 T/CUMM (4-12)
[2016-10-16 06:24] LABS: Burr Cells Slight; Hypochromasia Slight; Lymphocytes 8 % (20-55); Platelet Estimate Adequate; Segmented Neutrophils 88 % (50-85); Total Cells Counted 100
[2016-10-16 06:25] LABS: Microcytosis 1+
[2016-10-16 06:35] LABS: Calcium 8.8 MG/DL (8.5-10.1); Osmolality,Calculated 306.9 MOS/KG (273-304)
[2016-10-16] MEDS: GABAPENTIN 100 MG CAPSULE PO SCH (08:39)
[2016-10-16] MEDS: POTASSIUM CHLORIDE 20 MEQ TABLET PO SCH (08:39)
[2016-10-16] MEDS: DILTIAZEM CD 180 MG CAPSULE PO SCH (08:39)
[2016-10-16] MEDS: acetaZOLAMIDE 250 MG TABLET PO SCH (08:39)
[2016-10-16] MEDS: THEOPHYLLINE ER (24 HR) 400 MG TABLET PO SCH (08:39)
[2016-10-16] MEDS: FERROUS SULFATE 325 MG TABLET PO SCH (08:39)
[2016-10-16] MEDS: busPIRone 5 MG TABLET PO SCH (08:39)
[2016-10-16] MEDS ORDERED: predniSONE 20 MG TABLET PO SCH (09:00)
--- NOTE | 2016-10-16 11:10 | Pulmonology Progress Note ---
Pulmonary - PN: Subj Interval history: Adrian Mcgovern, ANP-BC, GNP-BC, acting as scribe for Dr. Arturo Baxter Ms. Lanza is a 71-year-old white female who we saw in initial pulmonary consultation on 10/13/2016. At that time, our impressions were: #1: Acute lingular pneumonia #2: Acute exacerbation of COPD/asthma #3: CO2 retention #4: Bipolar disorder #5: Anxiety and depression #6: Hypertension #7: History of atrial fibrillation #8: Gastroesophageal reflux disease #9: History of anemia #10: Prolapsed bladder #11: History of recurrent UTIs #12: Stress incontinence #13: Hyperkalemia #14: Hypermagnesemia #15: Acute kidney injury #16: See past history 10/14/2016. Patient was seen today along with Nona Frazier RN. Chest x-ray shows that the patient's previously noted lingular pneumonia has resolved. She has an acute urinary tract infection which is most likely the cause of the patient's elevated white count in addition to her pneumonia. Clinically, the patient is doing remarkably well. She is less short of breath. She states that she overall feels improved since admission. Urine culture is pending, but is growing a gram-negative tatum. She is presently on Merrem and azithromycin. Blood cultures are negative thus far. Cold agglutinins are equivocal, so we will repeat these today. As stated before, the patient is already on azithromycin. Medications have been reviewed. Labs been reviewed. White count is 29,200 with 94.4% segs; H&H 11.6/37.7 with decreased indices and top normal red blood cell distribution with; platelet count 404,000; creatinine 1.00, BUN 28, sodium 146, potassium 3.5, magnesium 2.3 ; iron is low at 26, iron saturation is low at 6.5, and total iron-binding capacity is normal at 399 NEGATIVE SPOTTER with iron deficiency anemia; folate is greater than 24.0, B12 749; TSH and free T4 normal at 0.809 and 0.79 respectively ABGs this morning on an FiO2 28% show pH of 7.332, PCO2 51.9, PO2 97.2, bicarb 25.1, and oxygen saturation 98.0% 10/15/2016. Patient's alert and oriented today she says her breathing is fine her chest sounds much better. She has a persistent elevation of white blood cell count. I think this is a leukemoid reaction which she has had in the past. Patient is growing a gram-negative tatum from her urine. ID and sensitivities are pending. There are no new complaints and no new problems. Dr. Tam and I have reviewed the case and coordinated our care. 10/16/2016. The patient was seen today along with Jacqui Logan RN. Patient has been ambulating in the asif with the assistance of physical therapy and she is doing well. From a pulmonary standpoint patient appears back to her baseline. She states she feels well enough to be discharged home. We will leave the final decision for this with Dr. Tam. This morning, we have discussed the case with Dr. Tam and coordinated our care. Repeat cold agglutinins are negative at 1:8. Legionella is negative. Medications have been reviewed. We made no changes. Labs have been reviewed. White count is 19,200 with 82.3% segs; H&H 11.4/37.4; platelet count 374,000; creatinine 0.90, BUN 36, sodium 151, potassium 5.0. Urine culture grew E. coli. She is presently on Merrem. Exam (Progress Note) - Constitutional Vitals: Period Temp Pulse Resp BP Sys/Montes Pulse Ox Last 24 Hr 97.5 F-98.6 F 87-105 18-21 121-143/61-77 94-99 Exam: Chest is hyperinflated, but fairly clear Heart no gallop Abdomen is nontender nondistended; bowel sounds are positive 4 Extremities with nothing to suggest acute deep venous thrombophlebitis Psychiatric presently oriented 3 Neurologic long-term motor function is intact Plan: The patient has improved at her baseline from a pulmonary standpoint. She is being appropriately treated for urinary tract infection as per Dr. Tam. We will sign off. Please reconsult as needed. Results - Labs CBC & BMP: 10/16/16 05:14 10/16/16 05:14 Specialty Discharge - Follow Up or Referrals
--- NOTE | 2016-10-16 11:33 | Discharge Summary ---
<Jennifer Chirinos - Last Filed: 10/16/16 11:13> Hospital Course - Hospital Course Hospital Course: Ms. Lanza is a 71-year-old white female patient with a history of GERD, asthma , atrophia, CHF, hypertension, anxiety, bipolar disorder/depression, mild dementia, migraine headaches, and COPD that presented to the ED on 10/12 with the complaint of shortness of breath and wheezing. Patient's white count was noted to be 17.2 antibiotics were given in the ED. patient was admitted to the hospitalist service for further evaluation and treatment of acute exacerbation of COPD. Patient was started on azithromycin and meropenem. Patient's UA was positive for infection. Based on past cultures she grew out ESBL E. coli sensitive to meropenem. Urine cultures had insufficient bacterial count to be considered a real infection. Patient did have a lingular pneumonia which is been treated. Patient also has had a lot of anxiety that is not well managed just with Zoloft. We added a low dose of BuSpar 3 times a day which seems to help. Patient is better today and wishes to be discharged home. Patient will be switched over to Levaquin for 7 days with follow-up with Dr. Baxter from pulmonary in 1-2 weeks Specialty Discharge - Follow Up or Referrals Discharge Plan - Discharge Data Disposition: Home Health Service - Discharge Medications New Levofloxacin Tab [Levaquin Tab] 750 mg PO DAILY #7 tablet predniSONE TAB [PredniSONE] 40 mg PO DAILY #60 tablet busPIRone [Buspar] 5 mg PO TID #90 tablet Continue Sertraline [Zoloft] 25 mg PO BEDTIME Theophylline ER Tab (24 Hr) 400 mg PO DAILY dilTIAZem HCl [Cartia XT] 180 mg PO BID #60 capsule Gabapentin 100 mg PO BID #60 capsule Changed Albuterol/Ipratropium Neb [Duoneb] 3 ml RESP TX TID #90 vial - Follow Up or Referral Follow Up: Arturo Baxter MD [Physician] - 1 Week - Forms/Instructions Instructions: Atrial Fibrillation (DC), Acute Respiratory Distress Syndrome (DC ), Hyperkalemia (DC) Exam - Constitutional Vitals: Period Temp Pulse Resp BP Sys/Montes Pulse Ox Last 24 Hr 97.5 F-98.4 F 87-105 18-21 121-143/66-77 94-99 Discharge Results Procedures and tests throughout hospitalization: Pending Orders 10/12/16 13:38 Blood Culture Stat 10/13/16 11:36 Sputum Culture and Gram Stain Routine Labs on day of discharge: Labs from last 24 hours 10/16/16 10/16/16 10/14/16 05:14 05:14 17:27 WBC 19.2 H RBC 4.34 Hgb 11.4 L Hct 37.4 MCV 86.2 L MCH 26 L MCHC 30.5 L RDW 17.0 Plt Count 374 MPV 9.9 Neut % (Auto) 82.3 H Lymph % (Auto) 8.2 L [place] % (Auto) 5.9 Eos % (Auto) 0.0 Baso % (Auto) 0.2 Neut # (Auto) 15.8 H Lymph # (Auto) 1.6 [place] # (Auto) 1.1 H Eos # (Auto) 0.0 Baso # (Auto) 0.0 Total Counted 100 Immature Gran % 3.4 Nucleated RBC % 0.0 Immature Gran # 0.66 Segmented Neutrophils 88 H Lymphocytes 8 L Monocytes 4 Nucleated RBCs # 0.00 Platelet Estimate Adequate Hypochromasia Slight Microcytosis 1+ Marshall Cells Slight Morphology Comment Sodium 151 H Potassium 5.0 Chloride 119 H Carbon Dioxide 25 Anion Gap 12.0 BUN 36 H Creatinine 0.90 GFR Calculation 52 BUN/Creatinine Ratio 40.00 H Glucose 97 Calculated Osmolality 306.9 H Calcium 8.8 Ur L.pneumophila Ag Negative Preliminary micro results at discharge 10/12/16 13:38 Blood Culture - Preliminary Blood No growth at 3 days 10/12/16 13:08 Blood Culture - Preliminary Blood No growth at 3 days DS: Provider Date of admission: 10/12/16 14:23 Primary care physician: . No PCP Attending physician on admission: Nito Tam DPM Consults: 10/12/16 17:35 Consult to Physician [CONS] Routine Comment: Consulting Provider: Arturo Baxter When should Consulting Provider be notified: In am Consult to Specialist Group: Pulmonology Person Notified: Janessa Date Notified: 10/13/16 Time Notified: 09:48 10/14/16 10:01 Consult to Physical Therapy [CONS] Routine Reason for Physical Therapy: Evaluate and Treat Start Therapy: Today Consult Comment: on oxygen Discharging clinician: Jennifer Chirinos NP <Jamilah Tam Filed: 10/16/16 12:05> Hospital Course - Time spent with patient Time with patient DS: Greater than 30 minutes (40 min) Diagnosis - Discharge Diagnosis (1) Acute exacerbation of COPD with asthma Status: Acute (2) Acute and chronic respiratory failure ([id number]) Status: Acute (3) Hyperkalemia Status: Acute (4) History of atrial fibrillation Status: Acute (5) Anxiety Status: Acute (6) Essential hypertension Status: Chronic (7) UTI (urinary tract infection) Status: Acute Discharge Plan - Discharge Data Condition at Discharge: Stable Discharge Diet: heart healthy Activity: resume usual activities as tolerated, wear oxygen at all times (no more than 1/2 liter) Hygiene: no restrictions Weight Bearing at Discharge: full weight bearing Driving: no restrictions Exam - Constitutional General appearance: no acute distress, under weight - Respiratory Respiratory exam: Present: clear to auscultation bilaterally. Absent: rhonchi, wheezes - Cardiovascular Cardiovascular exam: Present: regular rate and rhythm. Absent: systolic murmur - GI/Abdominal GI/Abdominal exam: Present: normal bowel sounds, soft. Absent: tenderness - Extremities Exam Extremities exam: Present: normal inspection, normal capillary refill - Neurological Exam Neurological exam: Present: alert, oriented X3
[2016-10-16 11:49] VITALS: BP 132/72
== END 2016-10-16 14:35 | disposition home or self-care (01) | DRG 190 ==
LOC: EDUNIT# → N.ED 12:13 → SUATTDRO 14:23 → N.EDINP 14:23 → N.5E 16:37
PROVIDERS: ADMIT Podiatrist Foot Surgery; ATTEND Internal Medicine

== ENCOUNTER 2017-03-15 11:37 | Inpatient (IN) ==
[2017-03-15] MEDS ORDERED: FUROSEMIDE 100 MG/10 ML VIAL IV STA (11:57)
[2017-03-15] MEDS ORDERED: methylPREDNISolone SOD SUC 125 MG/2 ML VIAL IV STA (11:57)
[2017-03-15] MEDS ORDERED: ONDANSETRON 4 MG/2 ML VIAL IV STA (11:57)
[2017-03-15] MEDS ORDERED: ALBUTEROL 2.5 MG/3 ML NEB RESP TX SCH (12:00)
[2017-03-15] MEDS ORDERED: FUROSEMIDE 100 MG/10 ML VIAL ONE (12:08)
[2017-03-15] MEDS ORDERED: ONDANSETRON 4 MG/2 ML VIAL ONE (12:08)
[2017-03-15] MEDS ORDERED: methylPREDNISolone SOD SUC 125 MG/2 ML VIAL ONE (12:08)
[2017-03-15] MEDS ORDERED: ACETAMINOPHEN 500 MG TABLET PO STA (12:13)
[2017-03-15] MEDS ORDERED: ACETAMINOPHEN 500 MG TABLET ONE (12:22)
[2017-03-15 12:27] LABS: ABG Base Excess 0.3 MMOL/L (-2.5-2.5); ABG HCO3 24.5 MMOL/L (20-26); ABG Oxygen Saturation 90.8 % (95-100); ABG PCO2 51.1 MM HG (35-48); ABG PH 7.333 (7.35-7.45); ABG PO2 59.5 MM HG (80-95); ABG TCO2 23.6 MMOL/L (23-27)
[2017-03-15 13:04] LABS: Apearance,Urine CLOUDY (Clear); Bacteria,Urine Occasional /HPF (Few); Bilirubin,Urine Negative (Negative); Blood, Urine Small mg/dL (Negative); Glucose,Urine (UA) Negative (Negative); Ketones,Urine Negative (Negative); Mucus,Urine Occasional /LPF (Occasional); Nitrite,Urine Negative (Negative); Protein,Urine Negative; RBC,Urine 3 /HPF (0-4); Squamous Epithelial Cell,Urine Occasional /HPF (0-10); Urine Color Straw (Yellow); Urine Specific Gravity 1.004 (1.001-1.035); Urine Urobilinogen < 2.0 EU/DL (0.2-1.0); WBC,Urine 48 /HPF (0-6)
[2017-03-15 14:24] LABS: Basophils % 0.2 % (0.0-0.8); Hematocrit 43.8 VOL% (35.7-47.0); Hemoglobin 13.9 GM/DL (12.0-16.0); Immature Granulocytes % 1.8 %; Immature Granulocytes Absolute 0.36 #; Lymphocytes # 0.4 10*3/uL (1.4-4.0); Lymphocytes % 1.7 % (21.3-54.2); Mean Corpuscular HGB Conc 31.7 GM/DL (32-36); Mean Corpuscular Hemoglobin 29 PG (27-34); Mean Corpuscular Volume 91.3 FL (87-102); Mean Platelet Volume 9.9 FL (9.6-12.0); Monocytes # 0.6 10*3/uL (0.11-0.8); Monocytes % 2.8 % (1.7-12.7); Neutrophils # 18.7 10*3/uL (1.4-7.4); Neutrophils % 93.5 % (38.7-73.9); Platelet Count 262 T/CUMM (130-400); Red Cell Distribution Width 18.1 % (9.3-17.3)
[2017-03-15 14:33] LABS: INR 0.9; PT Patient Result 9.3 SECS
[2017-03-15 15:02] LABS: Alanine Aminotransferase 51 U/L (13-56); Albumin 2.8 G/DL (3.4-5.0); Alkaline Phosphatase 150 U/L (45-117); Aspartate Amino Transferase 41 U/L (0-37); Bilirubin,Total < 0.39 MG/DL (0.2-1.0); Blood Urea Nitrogen 33 MG/DL (7-18); Calcium 8.5 MG/DL (8.5-10.1); Glucose 147 MG/DL (74-106); Osmolality,Calculated 286.5 MOS/KG (273-304); Potassium 4.2 MMOL/L (3.5-5.1); Sodium 139 MMOL/L (136-145); Total Protein 5.8 G/DL (6.4-8.3)
[2017-03-15 15:07] LABS: Troponin I Only 0.053 NG/ML (0.00-0.045)
[2017-03-15] MEDS ORDERED: LEVOFLOXACIN INJ 750 MG in PREMIX 1 EACH IV STA (15:13)
[2017-03-15 15:17] LABS: Lactic Acid 1.7 MMOL/L (0.4-2.0)
[2017-03-15] MEDS ORDERED: LEVOFLOXACIN INJ 150 ML IV ONE (15:26)
[2017-03-15] MEDS ORDERED: OSELTAMIVIR 75 MG CAPSULE ONE (15:44)
[2017-03-15] MEDS: OSELTAMIVIR 30 MG CAPSULE PO SCH ×2 (15:51→20:42)
[2017-03-15] MEDS ORDERED: DEXTROSE 50% 25 GM/50 ML VIAL IV PRN (17:02)
[2017-03-15] MEDS ORDERED: ACETAMINOPHEN 325 MG TABLET PO PRN (17:02)
[2017-03-15] MEDS ORDERED: ONDANSETRON 4 MG/2 ML VIAL IV PRN (17:02)
[2017-03-15] MEDS ORDERED: GLUCAGON 1 MG VIAL IM PRN (17:02)
[2017-03-15] MEDS: ENOXAPARIN 40 MG/0.4 ML SYRINGE SUBCUT SCH (17:48)
[2017-03-15] MEDS: SODIUM CHLORIDE 0.45% 1,000 ML IV SCH (17:48)
[2017-03-15] MEDS: THEOPHYLLINE ER (24 HR) 400 MG TABLET PO SCH (17:48)
[2017-03-15 17:49] LABS: Platelet Estimate Normal; Segmented Neutrophils 100 % (50-85); Total Cells Counted 100
[2017-03-15] MEDS: methylPREDNISolone SOD SUC 40 MG/1 ML VIAL IV SCH ×2 (17:49→23:45)
[2017-03-15 17:50] LABS: Polychromasia Few
[2017-03-15] MEDS: ERTAPENEM 1,000 MG in SODIUM CHLORIDE 0.9% 50 ML IV SCH (18:03)
[2017-03-15] MEDS: ALBUTEROL/IPRATROPIUM 3 ML NEB RESP TX SCH (19:40)
[2017-03-15] MEDS: busPIRone 5 MG TABLET PO SCH (20:41)
[2017-03-15] MEDS: DILTIAZEM CD 180 MG CAPSULE PO SCH (20:41)
[2017-03-15] MEDS: SERTRALINE 25 MG TABLET PO SCH (20:42)
[2017-03-15] MEDS: GABAPENTIN 100 MG CAPSULE PO SCH (20:42)
[2017-03-15] MEDS: BUDESONIDE/FORMOTEROL 160-4.5 INHALER 6 GM INH SCH (20:42)
[2017-03-16] MEDS: ALBUTEROL/IPRATROPIUM 3 ML NEB RESP TX SCH ×4 (00:45→19:05)
[2017-03-16] MEDS: SODIUM CHLORIDE 0.45% 1,000 ML IV SCH ×2 (01:40→11:19)
[2017-03-16] MEDS: GABAPENTIN 100 MG CAPSULE PO SCH ×3 (09:40→21:08)
[2017-03-16] MEDS: THEOPHYLLINE ER (24 HR) 400 MG TABLET PO SCH (09:40)
[2017-03-16] MEDS: DILTIAZEM CD 180 MG CAPSULE PO SCH ×3 (09:40→21:07)
[2017-03-16] MEDS: OSELTAMIVIR 30 MG CAPSULE PO SCH (09:40)
[2017-03-16] MEDS: BUDESONIDE/FORMOTEROL 160-4.5 INHALER 6 GM INH SCH ×2 (09:40→21:07)
[2017-03-16] MEDS: busPIRone 5 MG TABLET PO SCH ×4 (09:40→21:07)
[2017-03-16 09:55] LABS: Calcium 7.5 MG/DL (8.5-10.1); Osmolality,Calculated 291.3 MOS/KG (273-304); Potassium 3.9 MMOL/L (3.5-5.1)
[2017-03-16 10:00] LABS: Basophils % 0.1 % (0.0-0.8); Hematocrit 39.3 VOL% (35.7-47.0); Hemoglobin 12.6 GM/DL (12.0-16.0); Immature Granulocytes % 2.5 %; Lymphocytes # 0.3 10*3/uL (1.4-4.0); Lymphocytes % 1.6 % (21.3-54.2); Mean Corpuscular HGB Conc 32.1 GM/DL (32-36); Mean Corpuscular Hemoglobin 29 PG (27-34); Mean Platelet Volume 10.9 FL (9.6-12.0); Monocytes # 0.5 10*3/uL (0.11-0.8); Monocytes % 3.2 % (1.7-12.7); NRBC # 0.02 10*3/uL; Neutrophils # 14.6 10*3/uL (1.4-7.4); Neutrophils % 92.6 % (38.7-73.9); Platelet Count 243 T/CUMM (130-400); Red Blood Count 4.32 MC/CUMM (3.8-5.5); White Blood Count 15.8 T/CUMM (4-12)
[2017-03-16 11:13] LABS: Band Neutrophils 2 % (0-10); Hypochromasia 2+; Lymphocytes 2 % (20-55); Microcytosis 1+; Nucleated Red Blood Cells 1 (0-5); Platelet Estimate Adequate; Segmented Neutrophils 92 % (50-85); Total Cells Counted 100
[2017-03-16] MEDS: methylPREDNISolone SOD SUC 40 MG/1 ML VIAL IV SCH ×3 (11:17→17:43)
[2017-03-16] MEDS: PANTOPRAZOLE 40 MG TABLET PO SCH (12:50)
[2017-03-16] MEDS: ENOXAPARIN 40 MG/0.4 ML SYRINGE SUBCUT SCH (17:43)
[2017-03-16] MEDS: SERTRALINE 25 MG TABLET PO SCH ×2 (20:43→21:08)
[2017-03-16] MEDS: OSELTAMIVIR 75 MG CAPSULE PO SCH ×2 (20:43→21:08)
[2017-03-16] MEDS: ERTAPENEM 1,000 MG in SODIUM CHLORIDE 0.9% 50 ML IV SCH (20:44)
[2017-03-16] MEDS: DESITIN 4OZ/NYSTATIN 15 GRAM MIXTURE PASTE TOP SCH (21:05)
[2017-03-17] MEDS: methylPREDNISolone SOD SUC 40 MG/1 ML VIAL IV SCH ×4 (00:19→17:36)
[2017-03-17] MEDS: ALBUTEROL/IPRATROPIUM 3 ML NEB RESP TX SCH ×4 (00:30→20:48)
[2017-03-17 06:02] LABS: Basophils % 0.2 % (0.0-0.8); Hematocrit 37.3 VOL% (35.7-47.0); Hemoglobin 11.7 GM/DL (12.0-16.0); Immature Granulocytes % 1.6 %; Immature Granulocytes Absolute 0.31 #; Lymphocytes # 0.3 10*3/uL (1.4-4.0); Lymphocytes % 1.5 % (21.3-54.2); Mean Corpuscular HGB Conc 31.4 GM/DL (32-36); Mean Corpuscular Hemoglobin 29 PG (27-34); Mean Corpuscular Volume 92.1 FL (87-102); Mean Platelet Volume 10.4 FL (9.6-12.0); Monocytes # 0.6 10*3/uL (0.11-0.8); NRBC # 0.07 10*3/uL; Neutrophils # 18.5 10*3/uL (1.4-7.4); Neutrophils % 93.7 % (38.7-73.9); Platelet Count 238 T/CUMM (130-400); Red Blood Count 4.05 MC/CUMM (3.8-5.5); Red Cell Distribution Width 17.8 % (9.3-17.3); White Blood Count 19.7 T/CUMM (4-12)
[2017-03-17 06:45] LABS: Calcium 8.1 MG/DL (8.5-10.1); Osmolality,Calculated 300.1 MOS/KG (273-304); Potassium 4.5 MMOL/L (3.5-5.1)
[2017-03-17 06:50] LABS: Band Neutrophils 11 % (0-10); Hypochromasia 1+; Microcytosis 1+; Platelet Estimate Adequate; Segmented Neutrophils 79 % (50-85); Total Cells Counted 100
[2017-03-17] MEDS: THEOPHYLLINE ER (24 HR) 400 MG TABLET PO SCH (09:22)
[2017-03-17] MEDS: OSELTAMIVIR 75 MG CAPSULE PO SCH ×2 (09:22→22:29)
[2017-03-17] MEDS: DESITIN 4OZ/NYSTATIN 15 GRAM MIXTURE PASTE TOP SCH ×2 (09:22→22:33)
[2017-03-17] MEDS: DILTIAZEM CD 180 MG CAPSULE PO SCH ×2 (09:22→22:29)
[2017-03-17] MEDS: GABAPENTIN 100 MG CAPSULE PO SCH ×2 (09:22→22:29)
[2017-03-17] MEDS: BUDESONIDE/FORMOTEROL 160-4.5 INHALER 6 GM INH SCH ×2 (09:22→22:32)
[2017-03-17] MEDS: busPIRone 5 MG TABLET PO SCH ×3 (09:22→22:29)
[2017-03-17] MEDS: PANTOPRAZOLE 40 MG TABLET PO SCH (09:22)
[2017-03-17] MEDS ORDERED: SODIUM CHLORIDE 0.9% 500 ML IV ONE (13:35)
[2017-03-17] MEDS ORDERED: LEVOFLOXACIN INJ 750 MG in PREMIX 1 EACH IV SCH (15:00)
[2017-03-17] MEDS: SODIUM CHLORIDE 0.9% 1,000 ML IV SCH (17:36)
[2017-03-17] MEDS: ERTAPENEM 1,000 MG in SODIUM CHLORIDE 0.9% 50 ML IV SCH (17:36)
[2017-03-17] MEDS: ENOXAPARIN 40 MG/0.4 ML SYRINGE SUBCUT SCH (17:36)
[2017-03-17] MEDS: ALBUTEROL 2.5 MG/3 ML NEB RESP TX PRN (20:03)
[2017-03-17] MEDS: SERTRALINE 25 MG TABLET PO SCH (22:30)
[2017-03-18] MEDS: methylPREDNISolone SOD SUC 40 MG/1 ML VIAL IV SCH ×4 (00:16→15:19)
[2017-03-18] MEDS: ALBUTEROL/IPRATROPIUM 3 ML NEB RESP TX SCH ×4 (00:41→20:41)
[2017-03-18] MEDS ORDERED: CLORAZEPATE 3.75 MG TABLET PO ONE (02:04)
[2017-03-18 02:25] LABS: Basophils % 0.1 % (0.0-0.8); Hematocrit 37.8 VOL% (35.7-47.0); Hemoglobin 11.7 GM/DL (12.0-16.0); Immature Granulocytes % 2.5 %; Lymphocytes # 0.5 10*3/uL (1.4-4.0); Lymphocytes % 2.2 % (21.3-54.2); Mean Corpuscular Hemoglobin 29 PG (27-34); Mean Corpuscular Volume 94.7 FL (87-102); Mean Platelet Volume 10.7 FL (9.6-12.0); Monocytes # 0.6 10*3/uL (0.11-0.8); Monocytes % 2.9 % (1.7-12.7); NRBC # 0.05 10*3/uL; Neutrophils # 18.7 10*3/uL (1.4-7.4); Neutrophils % 92.3 % (38.7-73.9); Platelet Count 234 T/CUMM (130-400); Red Blood Count 3.99 MC/CUMM (3.8-5.5); White Blood Count 20.2 T/CUMM (4-12)
[2017-03-18 02:54] LABS: Calcium 7.4 MG/DL (8.5-10.1)
[2017-03-18 02:55] LABS: Osmolality,Calculated 302.4 MOS/KG (273-304)
[2017-03-18 03:08] LABS: Band Neutrophils 3 % (0-10); Lymphocytes 1 % (20-55); Segmented Neutrophils 94 % (50-85)
[2017-03-18 03:09] LABS: Anisocytosis 1+; Hypochromasia 1+; Microcytosis 1+; Ovalocytes 1+; Platelet Estimate Normal
[2017-03-18 03:10] LABS: Total Cells Counted 100
[2017-03-18] MEDS: SODIUM CHLORIDE 0.9% 1,000 ML IV SCH ×2 (05:32→22:14)
[2017-03-18] MEDS: THEOPHYLLINE ER (24 HR) 400 MG TABLET PO SCH (10:10)
[2017-03-18] MEDS: DILTIAZEM CD 180 MG CAPSULE PO SCH ×2 (10:10→21:58)
[2017-03-18] MEDS: busPIRone 5 MG TABLET PO SCH ×3 (10:10→21:58)
[2017-03-18] MEDS: GABAPENTIN 100 MG CAPSULE PO SCH ×2 (10:11→21:59)
[2017-03-18] MEDS: PANTOPRAZOLE 40 MG TABLET PO SCH (10:11)
[2017-03-18] MEDS: OSELTAMIVIR 75 MG CAPSULE PO SCH ×2 (10:16→21:59)
[2017-03-18] MEDS: BUDESONIDE/FORMOTEROL 160-4.5 INHALER 6 GM INH SCH ×2 (10:16→22:01)
[2017-03-18] MEDS: DESITIN 4OZ/NYSTATIN 15 GRAM MIXTURE PASTE TOP SCH ×2 (10:16→22:02)
[2017-03-18] MEDS: ENOXAPARIN 40 MG/0.4 ML SYRINGE SUBCUT SCH (17:25)
[2017-03-18] MEDS: SERTRALINE 25 MG TABLET PO SCH (21:59)
[2017-03-18] MEDS: ALBUTEROL 2.5 MG/3 ML NEB RESP TX PRN (22:38)
[2017-03-19] MEDS: ALBUTEROL/IPRATROPIUM 3 ML NEB RESP TX SCH ×4 (01:26→20:13)
[2017-03-19] MEDS: methylPREDNISolone SOD SUC 40 MG/1 ML VIAL IV SCH ×2 (03:02→15:57)
[2017-03-19] MEDS ORDERED: ZINC OXIDE 16% PASTE 57 GM TUBE TOP PRN (09:11)
[2017-03-19] MEDS: THEOPHYLLINE ER (24 HR) 400 MG TABLET PO SCH (09:50)
[2017-03-19] MEDS: GABAPENTIN 100 MG CAPSULE PO SCH ×2 (09:50→20:29)
[2017-03-19] MEDS: DILTIAZEM CD 180 MG CAPSULE PO SCH ×2 (09:50→20:29)
[2017-03-19] MEDS: busPIRone 5 MG TABLET PO SCH ×3 (09:52→20:29)
[2017-03-19] MEDS: PANTOPRAZOLE 40 MG TABLET PO SCH (09:52)
[2017-03-19] MEDS: DESITIN 4OZ/NYSTATIN 15 GRAM MIXTURE PASTE TOP SCH ×2 (09:53→20:30)
[2017-03-19] MEDS: BUDESONIDE/FORMOTEROL 160-4.5 INHALER 6 GM INH SCH ×2 (09:53→20:30)
[2017-03-19] MEDS: OSELTAMIVIR 75 MG CAPSULE PO SCH ×2 (09:54→20:29)
[2017-03-19] MEDS: ENOXAPARIN 40 MG/0.4 ML SYRINGE SUBCUT SCH ×2 (15:58→17:09)
[2017-03-19] MEDS: SERTRALINE 25 MG TABLET PO SCH (20:29)
[2017-03-19] MEDS: ALBUTEROL 2.5 MG/3 ML NEB RESP TX PRN (22:36)
[2017-03-20] MEDS: ALBUTEROL/IPRATROPIUM 3 ML NEB RESP TX SCH ×4 (01:24→19:10)
[2017-03-20] MEDS: methylPREDNISolone SOD SUC 40 MG/1 ML VIAL IV SCH ×2 (02:55→14:50)
[2017-03-20] MEDS: ALBUTEROL 2.5 MG/3 ML NEB RESP TX PRN ×2 (05:04→05:24)
[2017-03-20] MEDS: DILTIAZEM CD 180 MG CAPSULE PO SCH ×2 (09:00→20:07)
[2017-03-20] MEDS: THEOPHYLLINE ER (24 HR) 400 MG TABLET PO SCH (09:00)
[2017-03-20] MEDS: DESITIN 4OZ/NYSTATIN 15 GRAM MIXTURE PASTE TOP SCH ×2 (09:01→20:07)
[2017-03-20] MEDS: PANTOPRAZOLE 40 MG TABLET PO SCH (09:01)
[2017-03-20] MEDS: GABAPENTIN 100 MG CAPSULE PO SCH ×2 (09:01→20:07)
[2017-03-20] MEDS: busPIRone 5 MG TABLET PO SCH ×3 (09:01→20:06)
[2017-03-20] MEDS: BUDESONIDE/FORMOTEROL 160-4.5 INHALER 6 GM INH SCH ×2 (09:01→20:07)
[2017-03-20] MEDS: OSELTAMIVIR 75 MG CAPSULE PO SCH ×2 (09:02→20:07)
[2017-03-20] MEDS: LEVOFLOXACIN INJ 500 MG in PREMIX 1 EACH IV SCH (14:50)
[2017-03-20] MEDS: ENOXAPARIN 40 MG/0.4 ML SYRINGE SUBCUT SCH (17:06)
[2017-03-20] MEDS: SERTRALINE 25 MG TABLET PO SCH (20:07)
[2017-03-21] MEDS: ALBUTEROL/IPRATROPIUM 3 ML NEB RESP TX SCH ×3 (00:56→13:11)
[2017-03-21] MEDS: methylPREDNISolone SOD SUC 40 MG/1 ML VIAL IV SCH (03:15)
[2017-03-21 08:21] LABS: Basophils # 0.2 10*3/uL (0.0-0.2); Basophils % 0.9 % (0.0-0.8); Hematocrit 41.4 VOL% (35.7-47.0); Hemoglobin 13.2 GM/DL (12.0-16.0); Immature Granulocytes % 8.5 %; Immature Granulocytes Absolute 1.39 #; Lymphocytes # 0.3 10*3/uL (1.4-4.0); Lymphocytes % 1.8 % (21.3-54.2); Mean Corpuscular HGB Conc 31.9 GM/DL (32-36); Mean Corpuscular Hemoglobin 29 PG (27-34); Mean Corpuscular Volume 90.2 FL (87-102); Monocytes # 0.4 10*3/uL (0.11-0.8); Monocytes % 2.6 % (1.7-12.7); NRBC # 0.03 10*3/uL; Neutrophils # 14.1 10*3/uL (1.4-7.4); Neutrophils % 86.2 % (38.7-73.9); Platelet Count 238 T/CUMM (130-400); Red Blood Count 4.59 MC/CUMM (3.8-5.5); Red Cell Distribution Width 17.5 % (9.3-17.3); White Blood Count 16.3 T/CUMM (4-12)
[2017-03-21] MEDS: OSELTAMIVIR 75 MG CAPSULE PO SCH (08:41)
[2017-03-21] MEDS: PANTOPRAZOLE 40 MG TABLET PO SCH (08:41)
[2017-03-21] MEDS: THEOPHYLLINE ER (24 HR) 400 MG TABLET PO SCH (08:41)
[2017-03-21] MEDS: DILTIAZEM CD 180 MG CAPSULE PO SCH (08:41)
[2017-03-21] MEDS: GABAPENTIN 100 MG CAPSULE PO SCH (08:41)
[2017-03-21] MEDS: busPIRone 5 MG TABLET PO SCH (08:42)
[2017-03-21] MEDS: DESITIN 4OZ/NYSTATIN 15 GRAM MIXTURE PASTE TOP SCH (08:43)
[2017-03-21] MEDS: BUDESONIDE/FORMOTEROL 160-4.5 INHALER 6 GM INH SCH (08:44)
[2017-03-21 08:46] LABS: Calcium 8.1 MG/DL (8.5-10.1); Osmolality,Calculated 292.1 MOS/KG (273-304); Potassium 4.9 MMOL/L (3.5-5.1)
[2017-03-21 09:27] LABS: Anisocytosis Slight; Band Neutrophils 4 % (0-10); Lymphocytes 4 % (20-55); Poikilocytosis Slight; Segmented Neutrophils 92 % (50-85); Total Cells Counted 100
[2017-03-21 13:27] VITALS: BP 145/92
[2017-03-21] MEDS: LEVOFLOXACIN INJ 500 MG in PREMIX 1 EACH IV SCH (14:17)
== END 2017-03-21 15:37 | disposition home health service (06) | DRG 189 ==
LOC: EDBD → EDUNIT# → N.ED 11:37 → N.EDINP 14:57 → SUATTDRO 14:57 → N.EDINP 16:50 → N.5E 16:59
PROVIDERS: ADMIT Internal Medicine; ATTEND Internal Medicine

== ENCOUNTER 2017-03-22 16:32 | Inpatient (IN) ==
[2017-03-22] MEDS ORDERED: methylPREDNISolone SOD SUC 125 MG/2 ML VIAL IV STA (16:51)
[2017-03-22] MEDS ORDERED: FUROSEMIDE 40 MG/4 ML VIAL IV STA (16:51)
[2017-03-22] MEDS ORDERED: FUROSEMIDE 40 MG/4 ML VIAL ONE (17:20)
[2017-03-22] MEDS ORDERED: methylPREDNISolone SOD SUC 125 MG/2 ML VIAL ONE (17:20)
[2017-03-22 17:50] LABS: ABG Base Excess 8.4 MMOL/L (-2.5-2.5); ABG HCO3 32.1 MMOL/L (20-26); ABG Oxygen Saturation 97.6 % (95-100); ABG PCO2 60.2 MM HG (35-48); ABG PH 7.388 (7.35-7.45); ABG PO2 96.7 MM HG (80-95); ABG TCO2 30.8 MMOL/L (23-27)
[2017-03-22] MEDS ORDERED: LEVOFLOXACIN INJ 750 MG in PREMIX 1 EACH IV STA (18:13)
[2017-03-22 18:16] LABS: Apearance,Urine Slightly Hazy (Clear); Bacteria,Urine Occasional /HPF (Few); Bilirubin,Urine Negative (Negative); Blood, Urine Small mg/dL (Negative); Glucose,Urine (UA) Negative (Negative); Ketones,Urine Negative (Negative); Mucus,Urine Occasional /LPF (Occasional); Nitrite,Urine Negative (Negative); Protein,Urine Negative; RBC,Urine 7 /HPF (0-4); Squamous Epithelial Cell,Urine Occasional /HPF (0-10); Urine Color Yellow (Yellow); Urine Specific Gravity 1.011 (1.001-1.035); Urine Urobilinogen < 2.0 EU/DL (0.2-1.0); WBC,Urine 51 /HPF (0-6)
[2017-03-22] MEDS ORDERED: LEVOFLOXACIN INJ 150 ML IV ONE (18:16)
[2017-03-22] MEDS ORDERED: ONDANSETRON 4 MG/2 ML VIAL IV PRN (18:19)
[2017-03-22 18:22] LABS: Basophils % 0.1 % (0.0-0.8); Eosinophils % 0.2 % (0.00-10.9); Hematocrit 48.2 VOL% (35.7-47.0); Hemoglobin 15.3 GM/DL (12.0-16.0); Immature Granulocytes % 8.4 %; Immature Granulocytes Absolute 1.05 #; Lymphocytes # 1.8 10*3/uL (1.4-4.0); Lymphocytes % 14.3 % (21.3-54.2); Mean Corpuscular HGB Conc 31.7 GM/DL (32-36); Mean Corpuscular Hemoglobin 28 PG (27-34); Mean Corpuscular Volume 89.6 FL (87-102); Mean Platelet Volume 9.9 FL (9.6-12.0); Monocytes # 0.5 10*3/uL (0.11-0.8); Monocytes % 3.8 % (1.7-12.7); NRBC # 0.03 10*3/uL; Neutrophils # 9.2 10*3/uL (1.4-7.4); Neutrophils % 73.2 % (38.7-73.9); Platelet Count 272 T/CUMM (130-400); Red Blood Count 5.38 MC/CUMM (3.8-5.5); White Blood Count 12.5 T/CUMM (4-12)
[2017-03-22 18:30] LABS: INR 0.9; PT Patient Result 9.4 SECS; Partial Thromboplastin Time 22.5 SECS (0-40)
[2017-03-22 18:46] LABS: Alanine Aminotransferase 153 U/L (13-56); Albumin 2.8 G/DL (3.4-5.0); Alkaline Phosphatase 109 U/L (45-117); Aspartate Amino Transferase 58 U/L (0-37); Blood Urea Nitrogen 33 MG/DL (7-18); Calcium 8.5 MG/DL (8.5-10.1); Glucose 71 MG/DL (74-106); Osmolality,Calculated 285.3 MOS/KG (273-304); Potassium 4.6 MMOL/L (3.5-5.1); Sodium 141 MMOL/L (136-145); Total Protein 5.7 G/DL (6.4-8.3)
[2017-03-22 18:48] LABS: Troponin I Only 0.097 NG/ML (0.00-0.045)
[2017-03-22] MEDS ORDERED: VANCOMYCIN 500 MG VIAL IV SCH (19:00)
[2017-03-22] MEDS: DEXTROSE 5% NACL 0.45% 1,000 ML IV SCH (19:48)
[2017-03-22] MEDS: ENOXAPARIN 60 MG/0.6 ML SYRINGE SUBCUT SCH (19:55)
[2017-03-22] MEDS: MEROPENEM 500 MG in SYRINGE 1 EACH IV SCH (19:55)
[2017-03-22] MEDS: FUROSEMIDE 40 MG/4 ML VIAL IV SCH (19:57)
[2017-03-22] MEDS: ALBUTEROL/IPRATROPIUM 3 ML NEB RESP TX SCH ×2 (20:13→23:52)
[2017-03-22] MEDS ORDERED: DILTIAZEM 50 MG/10 ML VIAL IV ONE ×2 (20:43→20:44)
[2017-03-22 20:52] LABS: Burr Cells Few; Lymphocytes 19 % (20-55); Platelet Estimate Normal; Poikilocytosis 1+; Segmented Neutrophils 79 % (50-85); Tear Drop Cells Few; Total Cells Counted 100
[2017-03-22] MEDS: DILTIAZEM INJ 100 MG in SODIUM CHLORIDE 0.9% 100 ML IV SCH (20:57)
[2017-03-22] MEDS: VANCOMYCIN INJ 1,000 MG in SODIUM CHLORIDE 0.9% 250 ML IV SCH (21:57)
[2017-03-23] MEDS: methylPREDNISolone SOD SUC 40 MG/1 ML VIAL IV SCH ×4 (00:10→17:58)
[2017-03-23] MEDS: DILTIAZEM INJ 100 MG in SODIUM CHLORIDE 0.9% 100 ML IV SCH (03:16)
[2017-03-23 03:21] LABS: Troponin I Only 0.054 NG/ML (0.00-0.045)
[2017-03-23] MEDS: MEROPENEM 500 MG in SYRINGE 1 EACH IV SCH ×3 (03:38→20:56)
[2017-03-23 04:01] LABS: ABG Base Excess 8.6 MMOL/L (-2.5-2.5); ABG HCO3 32.1 MMOL/L (20-26); ABG Oxygen Saturation 90.1 % (95-100); ABG PH 7.435 (7.35-7.45); ABG PO2 56.3 MM HG (80-95); ABG TCO2 29.6 MMOL/L (23-27)
[2017-03-23] MEDS: ALBUTEROL/IPRATROPIUM 3 ML NEB RESP TX SCH ×5 (04:05→18:55)
[2017-03-23] MEDS: PANTOPRAZOLE 40 MG VIAL IV SCH (08:46)
[2017-03-23] MEDS: FUROSEMIDE 40 MG/4 ML VIAL IV SCH (08:48)
[2017-03-23] MEDS: VANCOMYCIN INJ 1,000 MG in SODIUM CHLORIDE 0.9% 250 ML IV SCH ×2 (08:49→21:44)
[2017-03-23] MEDS: ENOXAPARIN 60 MG/0.6 ML SYRINGE SUBCUT SCH (08:49)
[2017-03-23] MEDS ORDERED: INFLUENZA VIRUS VACCINE 0.5 ML SYRINGE IM ONE (09:00)
[2017-03-23 09:24] LABS: ABG Base Excess 7.6 MMOL/L (-2.5-2.5); ABG HCO3 31.2 MMOL/L (20-26); ABG Oxygen Saturation 92.3 % (95-100); ABG PCO2 51.9 MM HG (35-48); ABG PH 7.422 (7.35-7.45); ABG PO2 63.2 MM HG (80-95); ABG TCO2 28.9 MMOL/L (23-27)
[2017-03-23] MEDS: MONTELUKAST 10 MG TABLET PO SCH (12:38)
[2017-03-23] MEDS: DILTIAZEM CD 180 MG CAPSULE PO SCH ×2 (12:39→21:00)
[2017-03-23] MEDS: acetaZOLAMIDE 250 MG TABLET PO SCH ×2 (12:39→21:44)
[2017-03-23 12:43] LABS: Troponin I Only 0.054 NG/ML (0.00-0.045)
[2017-03-23] MEDS: ZINC OXIDE PASTE 113 GM TUBE TOP SCH ×2 (13:25→21:49)
[2017-03-23] MEDS: THEOPHYLLINE ER (24 HR) 400 MG TABLET PO SCH (16:52)
[2017-03-23] MEDS: busPIRone 5 MG TABLET PO SCH ×2 (16:53→20:59)
[2017-03-23] MEDS: LEVOFLOXACIN INJ 500 MG in PREMIX 1 EACH IV SCH (17:58)
[2017-03-23] MEDS: MEMANTINE 5 MG TABLET PO SCH (20:59)
[2017-03-23] MEDS: DEXTROSE 5% NACL 0.45% 1,000 ML IV SCH (21:45)
[2017-03-24] MEDS: ALBUTEROL/IPRATROPIUM 3 ML NEB RESP TX SCH ×8 (00:44→22:31)
[2017-03-24] MEDS: methylPREDNISolone SOD SUC 40 MG/1 ML VIAL IV SCH ×4 (01:18→21:55)
[2017-03-24] MEDS: MEROPENEM 500 MG in SYRINGE 1 EACH IV SCH (03:55)
[2017-03-24 04:16] LABS: ABG Base Excess 4.8 MMOL/L (-2.5-2.5); ABG HCO3 28.7 MMOL/L (20-26); ABG PCO2 46.6 MM HG (35-48); ABG PO2 63.7 MM HG (80-95); ABG TCO2 26.4 MMOL/L (23-27)
[2017-03-24 06:43] LABS: Hematocrit 39.3 VOL% (35.7-47.0); Hemoglobin 12.8 GM/DL (12.0-16.0); Mean Corpuscular HGB Conc 32.6 GM/DL (32-36); Mean Corpuscular Hemoglobin 29 PG (27-34); Mean Corpuscular Volume 88.9 FL (87-102); Red Blood Count 4.42 MC/CUMM (3.8-5.5); Red Cell Distribution Width 17.4 % (9.3-17.3); White Blood Count 17.8 T/CUMM (4-12)
[2017-03-24 06:44] LABS: Basophils # 0.1 10*3/uL (0.0-0.2); Basophils % 0.3 % (0.0-0.8); Immature Granulocytes % 5.1 %; Lymphocytes # 0.2 10*3/uL (1.4-4.0); Lymphocytes % 1.1 % (21.3-54.2); Mean Platelet Volume 10.4 FL (9.6-12.0); Monocytes # 0.3 10*3/uL (0.11-0.8); Monocytes % 1.7 % (1.7-12.7); Neutrophils # 16.3 10*3/uL (1.4-7.4); Neutrophils % 91.8 % (38.7-73.9); Platelet Count 261 T/CUMM (130-400)
[2017-03-24 07:21] LABS: Calcium 8.2 MG/DL (8.5-10.1); Osmolality,Calculated 301.3 MOS/KG (273-304); Potassium 3.2 MMOL/L (3.5-5.1)
[2017-03-24 07:22] LABS: Band Neutrophils 1 % (0-10); Hypochromasia 1+; Lymphocytes 1 % (20-55); Microcytosis 1+; Platelet Estimate Normal; Segmented Neutrophils 96 % (50-85); Total Cells Counted 100
[2017-03-24] MEDS: ENOXAPARIN 40 MG/0.4 ML SYRINGE SUBCUT SCH (09:53)
[2017-03-24] MEDS: VANCOMYCIN INJ 1,000 MG in SODIUM CHLORIDE 0.9% 250 ML IV SCH ×2 (09:53→20:44)
[2017-03-24] MEDS: PANTOPRAZOLE 40 MG VIAL IV SCH (09:54)
[2017-03-24] MEDS: busPIRone 5 MG TABLET PO SCH ×3 (09:54→20:43)
[2017-03-24] MEDS: MEMANTINE 5 MG TABLET PO SCH ×2 (09:54→20:43)
[2017-03-24] MEDS: DILTIAZEM CD 180 MG CAPSULE PO SCH ×2 (09:55→20:42)
[2017-03-24] MEDS: THEOPHYLLINE ER (24 HR) 400 MG TABLET PO SCH (09:55)
[2017-03-24] MEDS: MONTELUKAST 10 MG TABLET PO SCH (09:55)
[2017-03-24] MEDS: acetaZOLAMIDE 250 MG TABLET PO SCH ×2 (09:55→20:43)
[2017-03-24] MEDS: ZINC OXIDE PASTE 113 GM TUBE TOP SCH ×2 (09:56→20:44)
[2017-03-24] MEDS: POTASSIUM CHLORIDE 10 MEQ TABLET PO SCH ×2 (11:50→20:44)
[2017-03-24] MEDS ORDERED: ALBUTEROL/IPRATROPIUM 3 ML NEB RESP TX SCH (15:00)
[2017-03-24] MEDS: GABAPENTIN 100 MG CAPSULE PO SCH ×2 (15:47→20:44)
[2017-03-24] MEDS: MEROPENEM 1,000 MG in SYRINGE 1 EACH IV SCH ×2 (15:47→22:05)
[2017-03-24] MEDS: BUDESONIDE/FORMOTEROL 160-4.5 INHALER 6 GM INH SCH ×2 (15:47→20:44)
[2017-03-24] MEDS: LEVOFLOXACIN INJ 500 MG in PREMIX 1 EACH IV SCH (18:27)
[2017-03-25] MEDS: ALBUTEROL/IPRATROPIUM 3 ML NEB RESP TX SCH ×6 (02:20→23:56)
[2017-03-25 02:39] LABS: ABG Base Excess 2.5 MMOL/L (-2.5-2.5); ABG HCO3 26.6 MMOL/L (20-26); ABG Oxygen Saturation 93.7 % (95-100); ABG PCO2 50.3 MM HG (35-48); ABG PH 7.367 (7.35-7.45); ABG PO2 67.7 MM HG (80-95); ABG TCO2 25.5 MMOL/L (23-27)
[2017-03-25] MEDS: methylPREDNISolone SOD SUC 40 MG/1 ML VIAL IV SCH ×4 (05:17→20:45)
[2017-03-25] MEDS: MEROPENEM 1,000 MG in SYRINGE 1 EACH IV SCH ×3 (06:17→23:15)
[2017-03-25] MEDS: DEXTROSE 5% NACL 0.45% 1,000 ML IV SCH (06:51)
[2017-03-25 08:33] LABS: Basophils # 0.1 10*3/uL (0.0-0.2); Basophils % 0.2 % (0.0-0.8); Hematocrit 40.5 VOL% (35.7-47.0); Hemoglobin 12.9 GM/DL (12.0-16.0); Immature Granulocytes % 4.2 %; Lymphocytes # 0.3 10*3/uL (1.4-4.0); Lymphocytes % 1.4 % (21.3-54.2); Mean Corpuscular HGB Conc 31.9 GM/DL (32-36); Mean Corpuscular Hemoglobin 29 PG (27-34); Mean Corpuscular Volume 89.8 FL (87-102); Mean Platelet Volume 10.8 FL (9.6-12.0); Monocytes # 0.5 10*3/uL (0.11-0.8); Monocytes % 2.3 % (1.7-12.7); NRBC # 0.02 10*3/uL; Neutrophils # 21.8 10*3/uL (1.4-7.4); Neutrophils % 91.9 % (38.7-73.9); Platelet Count 293 T/CUMM (130-400); Red Blood Count 4.51 MC/CUMM (3.8-5.5); Red Cell Distribution Width 17.2 % (9.3-17.3); White Blood Count 23.7 T/CUMM (4-12)
[2017-03-25 08:59] LABS: Calcium 8.8 MG/DL (8.5-10.1); Potassium 3.1 MMOL/L (3.5-5.1)
[2017-03-25 09:09] LABS: Band Neutrophils 2 % (0-10); Hypochromasia 1+; Lymphocytes 6 % (20-55); Microcytosis 1+; Segmented Neutrophils 91 % (50-85); Total Cells Counted 100
[2017-03-25 09:10] LABS: Platelet Estimate Normal
[2017-03-25] MEDS: busPIRone 5 MG TABLET PO SCH ×3 (09:41→21:16)
[2017-03-25] MEDS: GABAPENTIN 100 MG CAPSULE PO SCH ×2 (09:41→21:16)
[2017-03-25] MEDS: MEMANTINE 5 MG TABLET PO SCH ×2 (09:41→21:16)
[2017-03-25] MEDS: DILTIAZEM CD 180 MG CAPSULE PO SCH ×2 (09:41→21:16)
[2017-03-25] MEDS: ENOXAPARIN 40 MG/0.4 ML SYRINGE SUBCUT SCH (09:41)
[2017-03-25] MEDS: POTASSIUM CHLORIDE 10 MEQ TABLET PO SCH ×3 (09:42→21:16)
[2017-03-25] MEDS: MONTELUKAST 10 MG TABLET PO SCH (09:42)
[2017-03-25] MEDS: THEOPHYLLINE ER (24 HR) 400 MG TABLET PO SCH (09:42)
[2017-03-25] MEDS: acetaZOLAMIDE 250 MG TABLET PO SCH ×2 (09:42→21:16)
[2017-03-25] MEDS: ZINC OXIDE PASTE 113 GM TUBE TOP SCH ×2 (09:42→21:17)
[2017-03-25] MEDS: BUDESONIDE/FORMOTEROL 160-4.5 INHALER 6 GM INH SCH ×2 (09:42→21:17)
[2017-03-25] MEDS: PANTOPRAZOLE 40 MG VIAL IV SCH (09:54)
[2017-03-25] MEDS: ESTRADIOL 2 MG TABLET PO SCH (09:59)
[2017-03-25] MEDS: VANCOMYCIN INJ 1,000 MG in SODIUM CHLORIDE 0.9% 250 ML IV SCH (10:01)
[2017-03-25] MEDS ORDERED: TUBERCULIN SKIN TEST 0.1 ML SYRINGE INTRADERM ONE (13:00)
[2017-03-25 13:41] LABS: Procalcitonin, S 0.15 ng/mL (<=0.15)
[2017-03-25] MEDS: LEVOFLOXACIN INJ 500 MG in PREMIX 1 EACH IV SCH (18:00)
[2017-03-25] MEDS ORDERED: POTASSIUM CHLORIDE 20 MEQ PACK PO ONE (19:33)
[2017-03-26] MEDS: methylPREDNISolone SOD SUC 40 MG/1 ML VIAL IV SCH ×2 (02:24→09:29)
[2017-03-26 02:38] LABS: Basophils # 0.1 10*3/uL (0.0-0.2); Basophils % 0.2 % (0.0-0.8); Hematocrit 37.8 VOL% (35.7-47.0); Hemoglobin 12.1 GM/DL (12.0-16.0); Immature Granulocytes % 4.7 %; Immature Granulocytes Absolute 1.13 #; Lymphocytes # 0.2 10*3/uL (1.4-4.0); Lymphocytes % 0.7 % (21.3-54.2); Mean Corpuscular Hemoglobin 29 PG (27-34); Mean Corpuscular Volume 91.3 FL (87-102); Mean Platelet Volume 10.4 FL (9.6-12.0); Monocytes # 0.6 10*3/uL (0.11-0.8); Monocytes % 2.6 % (1.7-12.7); NRBC # 0.02 10*3/uL; Neutrophils % 91.8 % (38.7-73.9); Platelet Count 268 T/CUMM (130-400); Red Blood Count 4.14 MC/CUMM (3.8-5.5); Red Cell Distribution Width 17.3 % (9.3-17.3)
[2017-03-26 03:08] LABS: Calcium 8.8 MG/DL (8.5-10.1); Osmolality,Calculated 316.6 MOS/KG (273-304); Potassium 4.2 MMOL/L (3.5-5.1)
[2017-03-26] MEDS: ALBUTEROL/IPRATROPIUM 3 ML NEB RESP TX SCH ×6 (03:34→22:46)
[2017-03-26 03:43] LABS: ABG HCO3 28.9 MMOL/L (20-26); ABG Oxygen Saturation 92.1 % (95-100); ABG PCO2 62.4 MM HG (35-48); ABG PH 7.284 (7.35-7.45); ABG PO2 60.3 MM HG (80-95); ABG TCO2 30.8 MMOL/L (23-27); Allen Test Positive
[2017-03-26 06:03] LABS: Band Neutrophils 3 % (0-10); Lymphocytes 4 % (20-55); Platelet Estimate Normal; Segmented Neutrophils 91 % (50-85); Total Cells Counted 100
[2017-03-26] MEDS: MEROPENEM 1,000 MG in SYRINGE 1 EACH IV SCH (06:24)
[2017-03-26] MEDS: PANTOPRAZOLE 40 MG VIAL IV SCH (09:29)
[2017-03-26] MEDS: ENOXAPARIN 40 MG/0.4 ML SYRINGE SUBCUT SCH (09:29)
[2017-03-26] MEDS: DEXTROSE 5% NACL 0.45% 1,000 ML IV SCH (09:29)
[2017-03-26] MEDS: VANCOMYCIN INJ 1,000 MG in SODIUM CHLORIDE 0.9% 250 ML IV SCH (09:30)
[2017-03-26] MEDS: DILTIAZEM CD 180 MG CAPSULE PO SCH ×2 (09:31→21:32)
[2017-03-26] MEDS: THEOPHYLLINE ER (24 HR) 400 MG TABLET PO SCH (09:31)
[2017-03-26] MEDS: acetaZOLAMIDE 250 MG TABLET PO SCH ×2 (09:31→21:33)
[2017-03-26] MEDS: ESTRADIOL 2 MG TABLET PO SCH (09:31)
[2017-03-26] MEDS: MONTELUKAST 10 MG TABLET PO SCH (09:31)
[2017-03-26] MEDS: MEMANTINE 5 MG TABLET PO SCH ×2 (09:31→21:34)
[2017-03-26] MEDS: busPIRone 5 MG TABLET PO SCH ×3 (09:31→21:32)
[2017-03-26] MEDS: GABAPENTIN 100 MG CAPSULE PO SCH ×2 (09:31→21:34)
[2017-03-26] MEDS: POTASSIUM CHLORIDE 10 MEQ TABLET PO SCH ×3 (09:31→21:33)
[2017-03-26] MEDS: BUDESONIDE/FORMOTEROL 160-4.5 INHALER 6 GM INH SCH ×2 (09:32→21:34)
[2017-03-26] MEDS: ZINC OXIDE PASTE 113 GM TUBE TOP SCH ×2 (09:32→21:33)
[2017-03-26] MEDS: LEVOFLOXACIN 500 MG TABLET PO SCH (14:30)
[2017-03-26 15:18] LABS: Apearance,Urine CLEAR (Clear); Bilirubin,Urine Negative (Negative); Blood, Urine Small mg/dL (Negative); Glucose,Urine (UA) >=500 mg/dL (Negative); Ketones,Urine 5 mg/dL (Negative); Mucus,Urine Occasional /LPF (Occasional); Nitrite,Urine Negative (Negative); Protein,Urine Negative; RBC,Urine 25 /HPF (0-4); Squamous Epithelial Cell,Urine Occasional /HPF (0-10); Urine Color Yellow (Yellow); Urine Specific Gravity 1.018 (1.001-1.035); Urine Urobilinogen < 2.0 EU/DL (0.2-1.0); WBC,Urine 19 /HPF (0-6)
[2017-03-26 16:11] LABS: ABG Base Excess 1.8 MMOL/L (-2.5-2.5); ABG HCO3 25.8 MMOL/L (20-26); ABG Oxygen Saturation 88.1 % (95-100); ABG PCO2 57.5 MM HG (35-48); ABG PH 7.316 (7.35-7.45); ABG PO2 52.2 MM HG (80-95); ABG TCO2 26.3 MMOL/L (23-27)
[2017-03-26] MEDS: NITROFURANTOIN MACRO/MONO 100 MG CAPSULE PO SCH (21:34)
[2017-03-27] MEDS: ALBUTEROL/IPRATROPIUM 3 ML NEB RESP TX SCH ×6 (02:57→23:22)
[2017-03-27 05:41] LABS: Basophils # 0.1 10*3/uL (0.0-0.2); Basophils % 0.4 % (0.0-0.8); Hematocrit 40.8 VOL% (35.7-47.0); Hemoglobin 12.8 GM/DL (12.0-16.0); Immature Granulocytes % 4.6 %; Immature Granulocytes Absolute 1.17 #; Lymphocytes # 0.3 10*3/uL (1.4-4.0); Lymphocytes % 1.3 % (21.3-54.2); Mean Corpuscular HGB Conc 31.4 GM/DL (32-36); Mean Corpuscular Hemoglobin 29 PG (27-34); Mean Corpuscular Volume 92.9 FL (87-102); Mean Platelet Volume 10.9 FL (9.6-12.0); Monocytes # 0.9 10*3/uL (0.11-0.8); Monocytes % 3.4 % (1.7-12.7); NRBC # 0.02 10*3/uL; Neutrophils % 90.3 % (38.7-73.9); Platelet Count 276 T/CUMM (130-400); Red Blood Count 4.39 MC/CUMM (3.8-5.5); Red Cell Distribution Width 17.9 % (9.3-17.3); White Blood Count 25.5 T/CUMM (4-12)
[2017-03-27 06:17] LABS: Calcium 9.2 MG/DL (8.5-10.1); Osmolality,Calculated 309.7 MOS/KG (273-304); Potassium 4.6 MMOL/L (3.5-5.1)
[2017-03-27 06:47] LABS: Band Neutrophils 1 % (0-10); Lymphocytes 3 % (20-55); Myelocytes 1 %; Segmented Neutrophils 92 % (50-85)
[2017-03-27 06:48] LABS: Platelet Estimate Normal; Total Cells Counted 100
[2017-03-27] MEDS ORDERED: PANTOPRAZOLE 40 MG TABLET PO SCH (09:00)
[2017-03-27] MEDS ORDERED: methylPREDNISolone SOD SUC 40 MG/1 ML VIAL IV SCH (09:00)
[2017-03-27] MEDS ORDERED: predniSONE 20 MG TABLET PO SCH (09:00)
[2017-03-27] MEDS: ENOXAPARIN 40 MG/0.4 ML SYRINGE SUBCUT SCH (09:27)
[2017-03-27] MEDS: THEOPHYLLINE ER (24 HR) 400 MG TABLET PO SCH (09:28)
[2017-03-27] MEDS: POTASSIUM CHLORIDE 10 MEQ TABLET PO SCH ×3 (09:28→22:28)
[2017-03-27] MEDS: NITROFURANTOIN MACRO/MONO 100 MG CAPSULE PO SCH ×2 (09:28→22:28)
[2017-03-27] MEDS: DILTIAZEM CD 180 MG CAPSULE PO SCH ×2 (09:28→22:28)
[2017-03-27] MEDS: LEVOFLOXACIN 500 MG TABLET PO SCH (09:28)
[2017-03-27] MEDS: GABAPENTIN 100 MG CAPSULE PO SCH ×2 (09:28→22:29)
[2017-03-27] MEDS: MONTELUKAST 10 MG TABLET PO SCH (09:28)
[2017-03-27] MEDS: busPIRone 5 MG TABLET PO SCH ×3 (09:28→22:28)
[2017-03-27] MEDS: acetaZOLAMIDE 250 MG TABLET PO SCH ×2 (09:28→22:28)
[2017-03-27] MEDS: MEMANTINE 5 MG TABLET PO SCH ×2 (09:28→22:28)
[2017-03-27] MEDS: ESTRADIOL 2 MG TABLET PO SCH (09:28)
[2017-03-27] MEDS: ZINC OXIDE PASTE 113 GM TUBE TOP SCH ×2 (09:30→21:00)
[2017-03-27] MEDS: BUDESONIDE/FORMOTEROL 160-4.5 INHALER 6 GM INH SCH ×2 (09:30→22:29)
[2017-03-27] MEDS: methylPREDNISolone SOD SUC 40 MG/1 ML VIAL IV SCH ×2 (10:40→18:31)
[2017-03-27] MEDS ORDERED: FUROSEMIDE 40 MG/4 ML VIAL IV ONE (10:56)
[2017-03-27 11:09] LABS: ABG Base Excess -0.7 MMOL/L (-2.5-2.5); ABG HCO3 23.7 MMOL/L (20-26); ABG Oxygen Saturation 88.8 % (95-100); ABG PH 7.237 (7.35-7.45); ABG PO2 57.5 MM HG (80-95); ABG TCO2 26.1 MMOL/L (23-27)
[2017-03-27 12:01] LABS: Calcium 8.6 MG/DL (8.5-10.1); Osmolality,Calculated 309.8 MOS/KG (273-304); Potassium 4.5 MMOL/L (3.5-5.1)
[2017-03-27] MEDS ORDERED: ONDANSETRON 4 MG/2 ML VIAL ONE (14:33)
[2017-03-27] MEDS ORDERED: ONDANSETRON 4 MG/2 ML VIAL IV PRN (14:35)
[2017-03-27] MEDS ORDERED: LEVALBUTEROL 0.63 MG/3 ML NEB RESP TX STA (14:36)
[2017-03-27 16:28] LABS: Apearance,Urine Slightly Hazy (Clear); Bilirubin,Urine Negative (Negative); Blood, Urine Negative (Negative); Glucose,Urine (UA) >=500 mg/dL (Negative); Ketones,Urine Negative (Negative); Nitrite,Urine Negative (Negative); Protein,Urine Negative; RBC,Urine 11 /HPF (0-4); Squamous Epithelial Cell,Urine Occasional /HPF (0-10); Urine Color Yellow (Yellow); Urine Specific Gravity 1.006 (1.001-1.035); Urine Urobilinogen < 2.0 EU/DL (0.2-1.0); WBC,Urine 9 /HPF (0-6)
[2017-03-27] MEDS ORDERED: fentaNYL 100 MCG/2 ML VIAL IV ONE (23:58)
[2017-03-28] MEDS: ALBUTEROL/IPRATROPIUM 3 ML NEB RESP TX PRN (00:08)
[2017-03-28 02:34] LABS: Apearance,Urine Slightly Hazy (Clear); Bacteria,Urine Occasional /HPF (Few); Bilirubin,Urine Negative (Negative); Blood, Urine Moderate mg/dL (Negative); Glucose,Urine (UA) >=500 mg/dL (Negative); Ketones,Urine Negative (Negative); Mucus,Urine Occasional /LPF (Occasional); Nitrite,Urine Negative (Negative); Protein,Urine 30 MG/DL; RBC,Urine 141 /HPF (0-4); Renal Epithelial Cells,Urine Occasional /HPF (<1); Squamous Epithelial Cell,Urine Occasional /HPF (0-10); Urine Color Yellow (Yellow); Urine Specific Gravity 1.012 (1.001-1.035); Urine Urobilinogen < 2.0 EU/DL (0.2-1.0); WBC,Urine 20 /HPF (0-6)
[2017-03-28] MEDS: POTASSIUM CHLORIDE RIDER 10 MEQ in PREMIX 1 EACH IV SCH ×3 (02:41→15:49)
[2017-03-28] MEDS: LEVOFLOXACIN INJ 500 MG in PREMIX 1 EACH IV SCH (02:41)
[2017-03-28] MEDS: methylPREDNISolone SOD SUC 40 MG/1 ML VIAL IV SCH ×3 (02:42→18:07)
[2017-03-28] MEDS: ALBUTEROL/IPRATROPIUM 3 ML NEB RESP TX SCH ×5 (04:12→19:56)
[2017-03-28] MEDS ORDERED: DEXTROSE 50% 25 GM/50 ML VIAL IV PRN (05:09)
[2017-03-28] MEDS ORDERED: SODIUM CHLORIDE 0.45% 1,000 ML IV ONE (05:09)
[2017-03-28] MEDS ORDERED: GLUCAGON 1 MG VIAL IM PRN (05:09)
[2017-03-28 05:22] LABS: Basophils # 0.1 10*3/uL (0.0-0.2); Basophils % 0.3 % (0.0-0.8); Hemoglobin 12.1 GM/DL (12.0-16.0); Immature Granulocytes % 4.6 %; Immature Granulocytes Absolute 0.78 #; Lymphocytes # 0.2 10*3/uL (1.4-4.0); Lymphocytes % 1.4 % (21.3-54.2); Mean Corpuscular Hemoglobin 29 PG (27-34); Mean Corpuscular Volume 93.8 FL (87-102); Mean Platelet Volume 10.6 FL (9.6-12.0); Monocytes # 0.4 10*3/uL (0.11-0.8); Monocytes % 2.4 % (1.7-12.7); NRBC # 0.02 10*3/uL; Neutrophils # 15.4 10*3/uL (1.4-7.4); Neutrophils % 91.3 % (38.7-73.9); Platelet Count 245 T/CUMM (130-400); Red Blood Count 4.16 MC/CUMM (3.8-5.5); Red Cell Distribution Width 17.6 % (9.3-17.3); White Blood Count 16.9 T/CUMM (4-12)
[2017-03-28 05:45] LABS: Lymphocytes 2 % (20-55); Platelet Estimate Normal; Segmented Neutrophils 97 % (50-85); Total Cells Counted 100
[2017-03-28 05:46] LABS: Calcium 8.2 MG/DL (8.5-10.1); Osmolality,Calculated 305.8 MOS/KG (273-304); Potassium 4.4 MMOL/L (3.5-5.1)
[2017-03-28] MEDS: INSULIN REGULAR 100 UNIT/ML SUBCUT SCH ×4 (06:04→23:15)
[2017-03-28] MEDS: SODIUM CHLORIDE 0.45% 1,000 ML IV SCH ×2 (06:15→14:18)
[2017-03-28] MEDS ORDERED: FUROSEMIDE 20 MG TABLET PO SCH (09:00)
[2017-03-28] MEDS: DILTIAZEM CD 180 MG CAPSULE PO SCH ×2 (09:08→20:26)
[2017-03-28] MEDS: MEMANTINE 5 MG TABLET PO SCH ×2 (09:12→20:25)
[2017-03-28] MEDS: THEOPHYLLINE ER (24 HR) 400 MG TABLET PO SCH (09:12)
[2017-03-28] MEDS: MONTELUKAST 10 MG TABLET PO SCH (09:12)
[2017-03-28] MEDS: busPIRone 5 MG TABLET PO SCH ×3 (09:12→20:26)
[2017-03-28] MEDS: GABAPENTIN 100 MG CAPSULE PO SCH ×2 (09:12→20:26)
[2017-03-28] MEDS: PANTOPRAZOLE 40 MG VIAL IV SCH (09:15)
[2017-03-28] MEDS: FUROSEMIDE 20 MG/2 ML VIAL IV SCH (09:16)
[2017-03-28] MEDS: ZINC OXIDE PASTE 113 GM TUBE TOP SCH ×2 (09:18→21:00)
[2017-03-28] MEDS: NITROFURANTOIN MACRO/MONO 100 MG CAPSULE PO SCH ×2 (09:18→20:26)
[2017-03-28] MEDS: ESTRADIOL 2 MG TABLET PO SCH (09:18)
[2017-03-28] MEDS: ENOXAPARIN 40 MG/0.4 ML SYRINGE SUBCUT SCH (09:18)
[2017-03-28] MEDS: BUDESONIDE/FORMOTEROL 160-4.5 INHALER 6 GM INH SCH ×2 (09:20→20:26)
[2017-03-28] MEDS: ESTRADIOL 0.01% VAG CREAM 42.5 GM TUBE VAG SCH (21:00)
[2017-03-29] MEDS: ALBUTEROL/IPRATROPIUM 3 ML NEB RESP TX SCH ×7 (00:06→23:59)
[2017-03-29] MEDS: POTASSIUM CHLORIDE RIDER 10 MEQ in PREMIX 1 EACH IV SCH ×2 (00:36→10:32)
[2017-03-29] MEDS: methylPREDNISolone SOD SUC 40 MG/1 ML VIAL IV SCH ×2 (01:58→10:33)
[2017-03-29] MEDS: LEVOFLOXACIN INJ 500 MG in PREMIX 1 EACH IV SCH (01:59)
[2017-03-29] MEDS: INSULIN REGULAR 100 UNIT/ML SUBCUT SCH ×3 (05:48→18:38)
[2017-03-29 06:22] LABS: Basophils # 0.1 10*3/uL (0.0-0.2); Basophils % 0.3 % (0.0-0.8); Hematocrit 36.3 VOL% (35.7-47.0); Hemoglobin 11.6 GM/DL (12.0-16.0); Immature Granulocytes % 4.2 %; Immature Granulocytes Absolute 0.81 #; Lymphocytes # 0.2 10*3/uL (1.4-4.0); Mean Corpuscular Hemoglobin 29 PG (27-34); Mean Corpuscular Volume 91.4 FL (87-102); Monocytes # 0.4 10*3/uL (0.11-0.8); Monocytes % 1.9 % (1.7-12.7); NRBC # 0.03 10*3/uL; Neutrophils # 17.9 10*3/uL (1.4-7.4); Neutrophils % 92.6 % (38.7-73.9); Platelet Count 231 T/CUMM (130-400); Red Blood Count 3.97 MC/CUMM (3.8-5.5); Red Cell Distribution Width 16.7 % (9.3-17.3); White Blood Count 19.3 T/CUMM (4-12)
[2017-03-29 06:44] LABS: Calcium 8.7 MG/DL (8.5-10.1); Osmolality,Calculated 301.1 MOS/KG (273-304)
[2017-03-29 07:09] LABS: Band Neutrophils 1 % (0-10); Lymphocytes 2 % (20-55); Segmented Neutrophils 96 % (50-85); Total Cells Counted 100
[2017-03-29 07:10] LABS: Giant Platelets Few; Hypochromasia 1+; Microcytosis Slight; Ovalocytes Slight; Platelet Estimate Adequate
[2017-03-29 08:59] LABS: ABG Base Excess 2.3 MMOL/L (-2.5-2.5); ABG HCO3 26.4 MMOL/L (20-26); ABG Oxygen Saturation 95.3 % (95-100); ABG PCO2 64.8 MM HG (35-48); ABG PH 7.284 (7.35-7.45); ABG PO2 76.1 MM HG (80-95); ABG TCO2 27.9 MMOL/L (23-27)
[2017-03-29] MEDS: busPIRone 5 MG TABLET PO SCH ×3 (10:28→22:07)
[2017-03-29] MEDS: MEMANTINE 5 MG TABLET PO SCH ×2 (10:28→22:07)
[2017-03-29] MEDS: NITROFURANTOIN MACRO/MONO 100 MG CAPSULE PO SCH ×2 (10:28→22:06)
[2017-03-29] MEDS: DILTIAZEM CD 180 MG CAPSULE PO SCH (10:29)
[2017-03-29] MEDS: MONTELUKAST 10 MG TABLET PO SCH (10:29)
[2017-03-29] MEDS: ESTRADIOL 2 MG TABLET PO SCH (10:29)
[2017-03-29] MEDS: ZINC OXIDE PASTE 113 GM TUBE TOP SCH ×4 (10:29→22:09)
[2017-03-29] MEDS: THEOPHYLLINE ER (24 HR) 400 MG TABLET PO SCH (10:29)
[2017-03-29] MEDS: ENOXAPARIN 40 MG/0.4 ML SYRINGE SUBCUT SCH (10:30)
[2017-03-29] MEDS: GABAPENTIN 100 MG CAPSULE PO SCH ×2 (10:30→22:07)
[2017-03-29] MEDS: FUROSEMIDE 20 MG/2 ML VIAL IV SCH (10:32)
[2017-03-29] MEDS: PANTOPRAZOLE 40 MG VIAL IV SCH (10:33)
[2017-03-29] MEDS: DILTIAZEM CD 240 MG CAPSULE PO SCH ×2 (10:36→22:06)
[2017-03-29] MEDS: BUDESONIDE/FORMOTEROL 160-4.5 INHALER 6 GM INH SCH ×2 (11:58→22:09)
[2017-03-29] MEDS: ALBUTEROL/IPRATROPIUM 3 ML NEB RESP TX PRN (15:45)
[2017-03-29] MEDS: acetaZOLAMIDE 250 MG TABLET PO SCH (22:06)
[2017-03-29] MEDS: ESTRADIOL 0.01% VAG CREAM 42.5 GM TUBE VAG SCH (22:10)
[2017-03-30] MEDS: INSULIN REGULAR 100 UNIT/ML SUBCUT SCH ×4 (00:27→17:47)
[2017-03-30] MEDS: ALBUTEROL/IPRATROPIUM 3 ML NEB RESP TX SCH ×5 (03:27→23:09)
[2017-03-30 03:39] LABS: ABG Base Excess 5.5 MMOL/L (-2.5-2.5); ABG HCO3 29.3 MMOL/L (20-26); ABG Oxygen Saturation 94.9 % (95-100); ABG PH 7.304 (7.35-7.45); ABG PO2 73.3 MM HG (80-95); Allen Test Positive
[2017-03-30] MEDS: ENOXAPARIN 40 MG/0.4 ML SYRINGE SUBCUT SCH (09:16)
[2017-03-30] MEDS: acetaZOLAMIDE 250 MG TABLET PO SCH ×2 (09:16→21:47)
[2017-03-30] MEDS: BUDESONIDE/FORMOTEROL 160-4.5 INHALER 6 GM INH SCH ×2 (09:16→21:54)
[2017-03-30] MEDS: ZINC OXIDE PASTE 113 GM TUBE TOP SCH ×2 (09:16→21:53)
[2017-03-30] MEDS: DILTIAZEM CD 240 MG CAPSULE PO SCH ×2 (09:16→21:47)
[2017-03-30] MEDS: ESTRADIOL 2 MG TABLET PO SCH (09:16)
[2017-03-30] MEDS: LEVOFLOXACIN 500 MG TABLET PO SCH (09:17)
[2017-03-30] MEDS: FUROSEMIDE 20 MG TABLET PO SCH (09:17)
[2017-03-30] MEDS: POTASSIUM CHLORIDE 20 MEQ TABLET PO SCH (09:17)
[2017-03-30] MEDS: predniSONE 20 MG TABLET PO SCH (09:17)
[2017-03-30] MEDS: NITROFURANTOIN MACRO/MONO 100 MG CAPSULE PO SCH ×2 (09:17→21:47)
[2017-03-30] MEDS: MONTELUKAST 10 MG TABLET PO SCH (09:17)
[2017-03-30] MEDS: THEOPHYLLINE ER (24 HR) 400 MG TABLET PO SCH (09:17)
[2017-03-30] MEDS: MEMANTINE 5 MG TABLET PO SCH ×2 (09:17→21:46)
[2017-03-30] MEDS: busPIRone 5 MG TABLET PO SCH ×3 (09:17→21:47)
[2017-03-30] MEDS: GABAPENTIN 100 MG CAPSULE PO SCH ×2 (09:37→21:48)
[2017-03-30 11:52] LABS: ABG Base Excess 8.1 MMOL/L (-2.5-2.5); ABG HCO3 31.7 MMOL/L (20-26); ABG Oxygen Saturation 90.3 % (95-100); ABG PCO2 57.7 MM HG (35-48); ABG PH 7.392 (7.35-7.45); ABG TCO2 31.1 MMOL/L (23-27); Allen Test Positive
[2017-03-30] MEDS: FLUCONAZOLE 200 MG TABLET PO SCH (12:21)
[2017-03-30] MEDS: NEBIVOLOL 5 MG TABLET PO SCH (17:47)
[2017-03-30] MEDS: ESTRADIOL 0.01% VAG CREAM 42.5 GM TUBE VAG SCH (21:50)
[2017-03-31] MEDS: INSULIN REGULAR 100 UNIT/ML SUBCUT SCH ×3 (00:56→12:02)
[2017-03-31] MEDS: ALBUTEROL/IPRATROPIUM 3 ML NEB RESP TX SCH ×3 (03:28→11:10)
[2017-03-31 03:42] LABS: Allen Test Positive; Pt O2 Delivery Device BIPAP
[2017-03-31 03:43] LABS: ABG Base Excess 3.7 MMOL/L (-2.5-2.5); ABG HCO3 27.7 MMOL/L (20-26); ABG Oxygen Saturation 94.6 % (95-100); ABG PCO2 62.3 MM HG (35-48); ABG PH 7.315 (7.35-7.45); ABG PO2 68.8 MM HG (80-95); ABG TCO2 28.6 MMOL/L (23-27)
[2017-03-31 06:41] LABS: Magnesium 2.3 MG/DL (1.8-2.4); Osmolality,Calculated 298.6 MOS/KG (273-304); Potassium 4.1 MMOL/L (3.5-5.1)
[2017-03-31] MEDS: ESTRADIOL 2 MG TABLET PO SCH (09:38)
[2017-03-31] MEDS: acetaZOLAMIDE 250 MG TABLET PO SCH (09:38)
[2017-03-31] MEDS: LEVOFLOXACIN 500 MG TABLET PO SCH (09:38)
[2017-03-31] MEDS: DILTIAZEM CD 240 MG CAPSULE PO SCH (09:38)
[2017-03-31] MEDS: THEOPHYLLINE ER (24 HR) 400 MG TABLET PO SCH (09:38)
[2017-03-31] MEDS: MEMANTINE 5 MG TABLET PO SCH (09:38)
[2017-03-31] MEDS: busPIRone 5 MG TABLET PO SCH (09:39)
[2017-03-31] MEDS: FUROSEMIDE 20 MG TABLET PO SCH (09:39)
[2017-03-31] MEDS: POTASSIUM CHLORIDE 20 MEQ TABLET PO SCH (09:39)
[2017-03-31] MEDS: NITROFURANTOIN MACRO/MONO 100 MG CAPSULE PO SCH (09:39)
[2017-03-31] MEDS: GABAPENTIN 100 MG CAPSULE PO SCH (09:39)
[2017-03-31] MEDS: FLUCONAZOLE 200 MG TABLET PO SCH (09:39)
[2017-03-31] MEDS: predniSONE 20 MG TABLET PO SCH (09:40)
[2017-03-31] MEDS: ENOXAPARIN 40 MG/0.4 ML SYRINGE SUBCUT SCH (09:40)
[2017-03-31] MEDS: BUDESONIDE/FORMOTEROL 160-4.5 INHALER 6 GM INH SCH (09:40)
[2017-03-31] MEDS: MONTELUKAST 10 MG TABLET PO SCH (09:40)
[2017-03-31] MEDS: ZINC OXIDE PASTE 113 GM TUBE TOP SCH (09:41)
[2017-03-31 11:56] VITALS: BP 133/60
[2017-03-31] MEDS: NEBIVOLOL 5 MG TABLET PO SCH (12:04)
== END 2017-03-31 13:20 | DRG 291 ==
LOC: EDBD → EDUNIT# → N.ED 16:32 → N.EDINP 17:39 → N.TELES 18:22 → N.ICU 19:01 → N.2E 03-23 15:01 → N.ICU 03-27 11:40 → N.2E 03-28 15:05
PROVIDERS: ADMIT Hospitalist; ATTEND Hospitalist